=== PATIENT | female | born 1935 | race Caucasian/White ===

== ENCOUNTER 2016-07-26 23:39 | Emergency (ER) | payer MEDICARE, OTHER ==
[2013-02-16 14:52] VITALS: BMI 36.3
[~2016-07-26 23:39] MED LIST: ALBUTEROL; ATIVAN1 MG PO; CATAPRES0.1 MG PO; COUMADIN3 MG PO; FOLIC ACID1 MG PO; LEUCOVORIN CALCI5 MG PO; LEVAQUIN500 MG PO; LEVOTHROID50 MCG PO; MUCINEX600 MG PO; PRILOSEC20 MG PO; TEKTURNA300 MG PO; TYLENOL 325 MG325 MG PO; VICODIN 5/500 T1 TAB PO
== END 2016-07-27 02:55 | disposition home or self-care (01) ==
LOC: D.ER 23:39
DX: K08.89 Other specified disorders of teeth and supporting structures (principal); K02.9 Dental caries, unspecified; K04.7 Periapical abscess without sinus; C34.90 Malignant neoplasm of unspecified part of unspecified bronchus or lung; I48.91 Unspecified atrial fibrillation

== ENCOUNTER → 2017-01-11 10:43 | Outpatient (CLI) | payer MEDICARE, OTHER ==
[2013-02-16 14:52] VITALS: BMI 36.3
== END | disposition home or self-care (01) ==
LOC: D.CT 10:43
DX: C34.90 Malignant neoplasm of unspecified part of unspecified bronchus or lung (principal)

== ENCOUNTER 2017-03-06 21:46 | Observation (INO) | payer MEDICARE, OTHER ==
[~2017-03-06] VITALS: Ht 180.3 cm; Wt 126.8 kg
[2017-03-06 22:42] LABS: APTT 33.1 SECONDS (22.8-39.4); INR 1.54 (0.85-1.17); PROTIME 18.4 SECONDS (11.6-15.0)
[2017-03-06 22:49] LABS: BASOPHILS 0.8 % (0-2); HEMATOCRIT 35.8 % (36.0-48.0); HEMOGLOBIN 11.5 g/dL (12-16); IMMATURE GRANULOCYTES 0.2 % (0-5); LYMPHOCYTES 48.8 % (15-50); MCH 27.1 pg (26.0-34.0); MCHC 32.1 g/dL (31.0-37.0); MCV 84.4 fL (80.0-100.0); MEAN PLATELET VOLUME 9.7 fL (7.4-10.4); MONOCYTES 15.2 % (2-11); RBC 4.24 10x6/uL (4.00-5.40); RDW 15.8 % (11.5-14.5)
[2017-03-06 22:50] LABS: PLATELET COUNT 464 10x3/uL (130-400)
[2017-03-06 22:55] LABS: ALBUMIN 3.5 g/dL (3.4-5.0); ANION GAP 12.7 mmol/L (8-16); BILIRUBIN - TOTAL 0.6 mg/dL (0.2-1.3); CALCIUM 9.3 mg/dL (8.5-10.1); CARBON DIOXIDE 30.5 mmol/L (21.0-32.0); CREATININE - SERUM 1.8 mg/dL (0.6-1.3); POTASSIUM - SERUM 3.2 mmol/L (3.5-5.1)
[2017-03-07] VITALS (7 sets, daily range): BP systolic 132–182; BP diastolic 43–55; Ht 180.3 cm; Wt 126.8 kg
[2017-03-07] MEDS ORDERED: HYDROCODON-ACE1 EAC7 PO (00:17)
[2017-03-07] MEDS ORDERED: HYDROCHLOROTHIA50 MG PO (00:20)
[2017-03-07] MEDS ORDERED: VITAMIN D5000 UNIT PO (00:20)
[2017-03-07] MEDS ORDERED: LASIX20 MG PO (00:21)
[2017-03-07] MEDS ORDERED: KLOR-CON M2020 MEQ PO (00:21)
[2017-03-07] MEDS ORDERED: METOPROLOL TART50 MG PO (00:22)
[2017-03-07] MEDS ORDERED: COZAAR25 MG PO (00:22)
[2017-03-07] MEDS ORDERED: CATAPRES0.1 MG PO (00:23)
[2017-03-07] MEDS ORDERED: HCTZ25 MG PO (00:24)
[2017-03-07 08:55] LABS: BASOPHILS 0.9 % (0-2); EOSINOPHILS 2.3 % (0-7); HEMATOCRIT 33.3 % (36.0-48.0); HEMOGLOBIN 10.8 g/dL (12-16); LYMPHOCYTES 48.1 % (15-50); MCH 27.3 pg (26.0-34.0); MCHC 32.4 g/dL (31.0-37.0); MCV 84.1 fL (80.0-100.0); MEAN PLATELET VOLUME 8.6 fL (7.4-10.4); MONOCYTES 11.9 % (2-11); NEUTROPHILS 36.8 % (40-80); RBC 3.96 10x6/uL (4.00-5.40); RDW 15.6 % (11.5-14.5)
[2017-03-07 09:07] LABS: CALCIUM 8.9 mg/dL (8.5-10.1); CARBON DIOXIDE 30.7 mmol/L (21.0-32.0); CREATININE - SERUM 1.5 mg/dL (0.6-1.3)
[2017-03-07 09:09] LABS: ANION GAP 11.3 mmol/L (8-16)
[2017-03-07 09:30] LABS: PLATELET COUNT 360 10x3/uL (130-400); WBC 4.3 10x3/uL (4.8-10.8)
[2017-03-07 16:16] LABS: CHOL - HDL RATIO 3.9 ratio (2.3-4.1); HEMOGLOBIN A1C 6.5 % (4.8-6.0); LDL-HDL RATIO 2.6 ratio (1.5-3.5)
[2017-03-08 04:00] VITALS: BP 118/50
[2017-03-08 05:07] LABS: BASOPHILS 0.8 % (0-2); EOSINOPHILS 2.7 % (0-7); HEMATOCRIT 34.5 % (36.0-48.0); HEMOGLOBIN 11.1 g/dL (12-16); LYMPHOCYTES 42.4 % (15-50); MCH 27.3 pg (26.0-34.0); MCHC 32.2 g/dL (31.0-37.0); MEAN PLATELET VOLUME 9.7 fL (7.4-10.4); MONOCYTES 13.8 % (2-11); NEUTROPHILS 40.3 % (40-80); RBC 4.06 10x6/uL (4.00-5.40); RDW 15.8 % (11.5-14.5)
[2017-03-08 05:13] LABS: PLATELET COUNT 464 10x3/uL (130-400)
[2017-03-08 05:18] LABS: INR 1.65 (0.85-1.17); PROTIME 19.5 SECONDS (11.6-15.0)
[2017-03-08 05:29] LABS: ANION GAP 12.1 mmol/L (8-16); BILIRUBIN - TOTAL 0.45 mg/dL (0.2-1.3); CALCIUM 8.7 mg/dL (8.5-10.1); CARBON DIOXIDE 30.9 mmol/L (21.0-32.0); CREATININE - SERUM 1.6 mg/dL (0.6-1.3); PROTEIN - SERUM 6.5 g/dL (6.4-8.2)
[2017-03-08 07:00] VITALS: BP 175/51
[2017-03-08 12:53] VITALS: BP 152/56
[2017-03-08 16:56] VITALS: BP 149/55
[2017-03-08 19:00] VITALS: BP 189/75
[2017-03-09] VITALS: BP 155/59
[2017-03-09 04:00] VITALS: BP 167/63
[2017-03-09 09:00] VITALS: BP 141/60
[2017-03-09 13:27] VITALS: BP 185/62
[2017-03-09] MEDS ORDERED: ASPIRIN325 MG PO (14:10)
[2017-03-09] MEDS ORDERED: ROCEPHIN 1 GM/D51 G1 IV (14:13)
[2017-03-09] MEDS ORDERED: PRAVACHOL20 MG PO (16:37)
[2017-03-09 17:24] VITALS: BP 144/63
[2017-03-09 18:05] LABS: BASOPHILS 0.8 % (0-2); EOSINOPHILS 4.4 % (0-7); HEMATOCRIT 37.5 % (36.0-48.0); HEMOGLOBIN 11.9 g/dL (12-16); IMMATURE GRANULOCYTES 0.2 % (0-5); LYMPHOCYTES 42.5 % (15-50); MCH 27.4 pg (26.0-34.0); MCHC 31.7 g/dL (31.0-37.0); MCV 86.2 fL (80.0-100.0); MEAN PLATELET VOLUME 9.7 fL (7.4-10.4); NEUTROPHILS 40.1 % (40-80); RBC 4.35 10x6/uL (4.00-5.40); RDW 15.9 % (11.5-14.5); WBC 4.8 10x3/uL (4.8-10.8)
[2017-03-09 18:15] LABS: INR 1.51 (0.85-1.17); PROTIME 18.2 SECONDS (11.6-15.0)
[2017-03-09 18:17] LABS: PLATELET COUNT 318 10x3/uL (130-400)
[2017-03-09 18:19] LABS: ALBUMIN 3.2 g/dL (3.4-5.0); BILIRUBIN - TOTAL 0.25 mg/dL (0.2-1.3); CARBON DIOXIDE 31.8 mmol/L (21.0-32.0); CREATININE - SERUM 1.7 mg/dL (0.6-1.3); PROTEIN - SERUM 6.9 g/dL (6.4-8.2)
[2017-03-09 18:20] LABS: POTASSIUM - SERUM 3.8 mmol/L (3.5-5.1)
== END 2017-03-09 18:26 ==
LOC: D.ER 21:46 → D.M2 23:16 → OBSVTIME 23:45 → D.M2 03-09 18:26
PROVIDERS: Emergency Medicine; ADMIT Family Medicine
DX: I63.512 Cerebral infarction due to unspecified occlusion or stenosis of left middle cerebral artery (principal); I65.22 Occlusion and stenosis of left carotid artery; E11.9 Type 2 diabetes mellitus without complications; I10 Essential (primary) hypertension; I25.10 Atherosclerotic heart disease of native coronary artery without angina pectoris; Z95.0 Presence of cardiac pacemaker; I48.2 Chronic atrial fibrillation; Z79.01 Long term (current) use of anticoagulants; R47.02 Dysphasia; K21.9 Gastro-esophageal reflux disease without esophagitis; Z86.73 Personal history of transient ischemic attack (TIA), and cerebral infarction without residual deficits; Z87.891 Personal history of nicotine dependence; L03.119 Cellulitis of unspecified part of limb; N17.9 Acute kidney failure, unspecified

== ENCOUNTER 2017-03-09 18:40 | Inpatient (IN) | payer MEDICARE, OTHER ==
[~2017-03-09] VITALS: Ht 180.3 cm; Wt 122.5 kg
[~2017-03-09 18:40] MED LIST changes: +ASPIRIN325 MG PO; +COZAAR25 MG PO; +HCTZ25 MG PO; +HYDROCHLOROTHIA50 MG PO; +HYDROCODON-ACE1 EAC7 PO; +KLOR-CON M2020 MEQ PO; +LASIX20 MG PO; +METOPROLOL TART50 MG PO; +PRAVACHOL20 MG PO; +ROCEPHIN 1 GM/D51 G1 IV; +VITAMIN D5000 UNIT PO
[2017-03-09 19:00] VITALS: BP 142/63
--- NOTE | 2017-03-09 19:30 | NUR ---
PT IN BED WITH HOB UP FOR COMFORT. ORIENTED PT TO ROOM AND HOW TO USE CALL LIGHT. O2 @ 2L VIA N/C. LEFT FA SALINE LOC. BED IN LOWEST POSIITON AND CALL LIGHT WITHIN REACH.
--- NOTE | 2017-03-09 20:30 | NUR ---
LEFT FA SLAINE LOC FLUSHES EASILY.
--- NOTE | 2017-03-10 | NUR ---
RN TO DO ASSESSMENT.
[2017-03-10 00:40] VITALS: BMI 37.7
--- NOTE | 2017-03-10 00:58 | NUR ---
ADMISSION ASSESSMENT COMPLETE. PRIMARY NURSE TO COLLECT HER ADMISSION HISTORY PRESENTLY.
--- NOTE | 2017-03-10 04:39 | NUR ---
PT LYING IN BED. EYES CLOSED. CHEST RISING AND FALLING. BED IN LOWEST POSITION AND CALL LIGHT WITHIN REACH.
--- NOTE | 2017-03-10 05:17 | NUR ---
ASSISTED PT TO BATHROOM AND BACK TO BED.
--- NOTE | 2017-03-10 07:09 | NUR ---
RESTING QUIETLY IN BED. NO S/S DISTRESS. CALL LIGHT IN REACH
--- NOTE | 2017-03-10 07:50 | NUR ---
IN THERAPY GYM WITH PHYSICAL THERAPIST ORAL. NO S/SX OF DISTRESS. OFFERS NO COMPLAINTS. ALERT AND ORIENTED
[2017-03-10 08:00] VITALS: BP 153/67
[2017-03-10 08:06] LABS: BASOPHILS 0.9 % (0-2); EOSINOPHILS 4.2 % (0-7); HEMATOCRIT 36.1 % (36.0-48.0); HEMOGLOBIN 11.6 g/dL (12-16); IMMATURE GRANULOCYTES 0.2 % (0-5); MCH 27.6 pg (26.0-34.0); MCHC 32.1 g/dL (31.0-37.0); MEAN PLATELET VOLUME 9.7 fL (7.4-10.4); MONOCYTES 10.5 % (2-11); NEUTROPHILS 35.2 % (40-80); RDW 15.9 % (11.5-14.5); WBC 5.7 10x3/uL (4.8-10.8)
[2017-03-10 08:07] LABS: PLATELET COUNT 469 10x3/uL (130-400)
[2017-03-10 08:16] LABS: CARBON DIOXIDE 32.3 mmol/L (21.0-32.0); CREATININE - SERUM 1.6 mg/dL (0.6-1.3); POTASSIUM - SERUM 3.3 mmol/L (3.5-5.1)
--- NOTE | 2017-03-10 09:59 | NUR ---
LYING IN BED ON RIGHT SIDE HOB 45 DEGRESS. ADMINISTERED MORNING MEDS WITHOUT DIFFICULTY. OFFERS NO CONCERNS AND DENIES PAIN. CALL LIGHT WITHIN REACH. WILL CONTINUE TO MONITOR
--- NOTE | 2017-03-10 15:01 | NUR ---
SITTING UP IN WHEELCHAIR VISITING FAMILY. OFFERS NO COMPLAINTS. CALL LIGHT WITHIN REACH. WILL CONTINUE TO MONITOR
--- NOTE | 2017-03-10 18:46 | NUR ---
ASSISTED TO RESTROOM AND ASSISTED TO BED WITH MIN ASSIST. OFFERS NO COMPLAINTS. CALL LIGHT IN REACH
--- NOTE | 2017-03-10 19:30 | NUR ---
PT IS RESTING IN BED WITH EYES CLOSED. RESPS ARE EVEN AND UNLABORED. NO ACUTE DISTRESS NOTED. ALERT AND ORIENTED X 3. DENIES ANY DISCOMFORT. O2 IS ON @ 2LPM PER NC. SR'S ARE UP X 3 IN BED. CALL LIGHT AND BEDSIDE TABLE ARE WITHIN EASY REACH.
[2017-03-10 20:00] VITALS: BP 141/72
--- NOTE | 2017-03-10 20:01 | NUR ---
PT. IN BED LYING ON HER LEFT SIDE WITH EYES CLOSED AND RESP. EVEN. CALL LIGHT WITHIN REACH.
--- NOTE | 2017-03-10 22:14 | NUR ---
PT IS RESTING IN BED WATCHING TV. NO NEEDS VOICED.
--- NOTE | 2017-03-11 00:27 | NUR ---
RESTING IN BED WITH EYES CLOSED.
--- NOTE | 2017-03-11 03:34 | NUR ---
RESTING IN BED WITH EYES CLOSED.
--- NOTE | 2017-03-11 07:50 | NUR ---
ASSISTED FROM BED TO WHEELCHAIR FOR BREAKFAST WITH MIN ASSIST. NO S/SX OF DISTRESS. ALERT AND ORIENTED X4. OFFERS NO COMPLAINTS AND DENIES PAIN. CALL LIGHT WITHIN REACH. WILL CONTINUE TO MONITOR
[2017-03-11 08:00] VITALS: BP 132/72
--- NOTE | 2017-03-11 09:28 | NUR ---
SITTING UP ON SIDE OF BED READING NEWSPAPER. ADMINISTERED MORNING MEDS WITHOUT DIFFICULTY. OFFERS NO COMPLAINTS. CALL LIGHT WITHIN REACH. WILL CONTINUE TO MONITOR
--- NOTE | 2017-03-11 11:31 | NUR ---
LYING IN BED ON RIGHT SIDE EASILY AROUSED WITH STIMULI. CALL LIGHT WITHIN REACH. CONTINUES ON O2 AT 2L VIA NC. WILL CONTINUE TO MONITOR
--- NOTE | 2017-03-11 14:26 | NUR ---
LYING IN BED ON RIGHT SIDE RESTING COMFORTABLY. OFFERS NO COMPLAINTS DENIES PAIN. CALL LIGHT WITHIN REACH. WILL CONTINUE TO MONITOR
--- NOTE | 2017-03-11 17:40 | NUR ---
SITTING UP IN WHEELCHAIR EATING DINNER. DAUGHTER AT BEDSIDE. OFFERS NO COMPLAINTS. CALL LIGHT WITHIN REACH. WILL CONTINUE TO MONITOR
--- NOTE | 2017-03-11 18:12 | NUR ---
PT RESTING ,DENIES NEEDS. WCTM.
[2017-03-11 19:28] VITALS: BP 131/74
--- NOTE | 2017-03-11 19:41 | NUR ---
PT. IN BED WITH HOB UP FOR COMFORT AND IS GETTING READY FOR BED. PT'S DAUGHTER IS PRESENT AND IS HELPING Alan CHENEY LPN WITH PT. NO VOICED NEEDS AND HER CALL LIGHT IS WITHIN REACH.
--- NOTE | 2017-03-11 19:42 | NUR ---
PT IS RESTING IN A WC IN HER ROOM. ALERT AND ORIENTED X 3. STATES: "IM JUST WAITING ON MY DAUGHTER. SHE SAID SHE WOULD BE BACK IN A WHILE." VSS. O2 IS ON @ 2LPM PER NC. NO SOB NOTED. LEFT WRIST SALINE LOCK NOTED. NO REDNESS OR EDEMA NOTED AT THE INSERTION SITE. SR'S ARE UP X 3 IN BED. CALL LIGHT AND BEDSIDE TABLE ARE WITHIN EASY REACH.
--- NOTE | 2017-03-11 21:36 | NUR ---
PT ASSISTED TO THE BATHROOM WITH SBA.
--- NOTE | 2017-03-12 00:01 | NUR ---
RESTING IN BED WITH EYES CLOSED.
--- NOTE | 2017-03-12 03:30 | NUR ---
RESTING IN BED WITH EYES CLOSED.
[2017-03-12 07:07] LABS: BASOPHILS 0.5 % (0-2); EOSINOPHILS 5.7 % (0-7); HEMATOCRIT 30.9 % (36.0-48.0); HEMOGLOBIN 10.1 g/dL (12-16); IMMATURE GRANULOCYTES 0.2 % (0-5); LYMPHOCYTES 36.9 % (15-50); MCH 27.9 pg (26.0-34.0); MCHC 32.7 g/dL (31.0-37.0); MCV 85.4 fL (80.0-100.0); MEAN PLATELET VOLUME 10.1 fL (7.4-10.4); MONOCYTES 15.4 % (2-11); NEUTROPHILS 41.3 % (40-80); PLATELET COUNT 466 10x3/uL (130-400); RBC 3.62 10x6/uL (4.00-5.40)
[2017-03-12 07:14] LABS: INR 2.04 (0.85-1.17); PROTIME 23.1 SECONDS (11.6-15.0)
[2017-03-12 07:29] LABS: ANION GAP 10.2 mmol/L (8-16); CALCIUM 9.1 mg/dL (8.5-10.1); CREATININE - SERUM 1.6 mg/dL (0.6-1.3); POTASSIUM - SERUM 3.2 mmol/L (3.5-5.1); THYROID STIMULATING HORMONE 1.11 uIU/mL (0.36-3.74)
[2017-03-12 08:00] VITALS: BP 169/58
--- NOTE | 2017-03-12 08:07 | NUR ---
PT RESTING IN BED WITH EYES OPEN CALL LIGHT IN REACH NO PROBLEMS WILL MONITER
--- NOTE | 2017-03-12 10:34 | NUR ---
PATIENT ADMITTED TO REHAB FROM ACUTE FLOOR. DR. AKBAR IS PCP, [facility] IS PH[facility]ACY OF CHOICE.. DME AT HOME: BEDSIDE COMMODE, O2 AMD WALKER. HER MICA SPLITTER WILL ASSIT AT DISCHARGE: [facility] [phone], OR [phone]. WILL CONTINUE TO FOLLOW WITH PATIENT
--- NOTE | 2017-03-12 19:30 | NUR ---
PM ROUNDS MADE, PT VISITING WITH FAMILY, WILL COME BACK TO DO ASSESSMENT
--- NOTE | 2017-03-12 20:10 | NUR ---
PT TRANSFERRED TO BED PER THIS RN AND TANVI, DIRECTOR DATA MANAGEMENT, VS OBTAINED PER DIRECTOR DATA MANAGEMENT, ASSESSMENT PER FLOW SHEET, SALINE LOCK IN RIGHT FA INTACT WITH NO REDNESS OR EDEMA, 02 PLACED AT 2L PER MD ORDERS, PT REPORTS FLATUS, DENIES BM TODAY, PT INST ON AND VERBALIZES UNDERSTANDING TO USE CALL LIGHT WHEN NEEDING TO USE THE BR, PT RATES NECK PAIN 12/09, INFORMED PT THAT I WILL CHECK TO SEE IF PAIN MED IS DUE, PT VERBALIZES UNDERSTANDING, BED IN LOW POSITION, SIDE RAILS X 2, CALL LIGHT IN REACH, BED ALARM ON AND WORKING PROPERLY
--- NOTE | 2017-03-12 21:44 | NUR ---
PT AWAKE, ADM 2100 MEDS AND PAIN MED PER MD ORDERS, SEE EMAR, PT DENIES FURTHER NEEDS
[2017-03-12 21:45] VITALS: BP 176/73
--- NOTE | 2017-03-12 22:30 | NUR ---
PT RESTING WITH EYES CLOSED, RESP QUIET, NO DISTRESS NOTED, LEFT UNDISTURBED AT THIS TIME
--- NOTE | 2017-03-13 00:30 | NUR ---
PT RESTING WITH EYES CLOSED, RESP QUIET, NO DISTRESS NOTED, LEFT UNDISTURBED AT THIS TIME
--- NOTE | 2017-03-13 02:15 | NUR ---
PT RESTING WITH EYES CLOSED, RESP QUIET, NO DISTRESS NOTED, LEFT UNDISTURBED AT THIS TIME, BED IN LOW POSITION, SIDE RAILS X 2, CALL LIGHT IN REACH, BED ALARM ON AND WORKING PROPERLY
--- NOTE | 2017-03-13 04:34 | NUR ---
PT JUNIOR WEB DEVELOPER LIGHT, PT REPORTS BEING WET, PT IS NOT WET, BUT PT IS SLIGHTLY ARGUMENTATIVE, PT CHANGED INTO AN ADULT BRIEF, PINK PAD CHANGED BECAUSE PT C/O IT BEING BUNCHED UP UNDERNEATH HER, PT C/O PAIN, ADM [place] PO PER MD ORDERS, SEE EMAR, PT DENIES FURTHER NEEDS, PT STATES "I'M SORRY I SEEM AGGREVATED", REASSURED PT THAT WAS OK, BED IN LOW POSITION, SIDE RAILS X 2, CALL LIGHT IN REACH, BED ALARM ON AND WORKING PROPERLY
--- NOTE | 2017-03-13 06:23 | NUR ---
PT RESTING WITH EYES CLOSED, AROUSES TO SOFT VERBAL STIMULATION, ADM 0600 MEDS AND FLUSHED SALINE LOCK PER MD ORDERS, SEE EMAR, PT DENIES NEEDS OR PAIN AT THIS TIME, BED IN LOW POSITION, SIDE RAILS X 2, CALL LIGHT IN REACH, BED ALARM ON AND WORKING PROPERLY
--- NOTE | 2017-03-13 06:43 | NUR ---
SHIFT REPORT TO DAY SHIFT
--- NOTE | 2017-03-13 08:26 | NUR ---
PT UP IN WHEELCHAIR EATING BREAKFAST CALL LIGHT IN REACH NO PROBLEMS WILL MONITER
[2017-03-13 08:32] VITALS: BP 129/48
--- NOTE | 2017-03-13 18:00 | NUR ---
PT RESTING IN BED WITH EYES OPEN CALL LIGHT IN REACH NO PROBLEMS WILL MONITER
--- NOTE | 2017-03-13 18:05 | NUR ---
PT RESTING IN BED WITH EYES OPEN CALL LIGHT IN REACH NO PROBLEMS WILL MONITER
--- NOTE | 2017-03-13 19:25 | NUR ---
DAUGHTER TALKS TO PT AT BEDSIDE.
[2017-03-13 20:04] VITALS: BP 177/67
--- NOTE | 2017-03-14 03:20 | NUR ---
IN BED, RESTING QUIETLY, HOB UP 30 DEGREES.
--- NOTE | 2017-03-14 04:44 | NUR ---
REST QUIETLY IN BED, CALL LIGHT IN REACH.
[2017-03-14 06:35] LABS: BASOPHILS 0.9 % (0-2); HEMATOCRIT 32.1 % (36.0-48.0); HEMOGLOBIN 10.1 g/dL (12-16); LYMPHOCYTES 37.4 % (15-50); MCH 26.7 pg (26.0-34.0); MCHC 31.5 g/dL (31.0-37.0); MCV 84.9 fL (80.0-100.0); MEAN PLATELET VOLUME 10.5 fL (7.4-10.4); MONOCYTES 14.4 % (2-11); NEUTROPHILS 41.3 % (40-80); PLATELET COUNT 499 10x3/uL (130-400); RBC 3.78 10x6/uL (4.00-5.40); RDW 15.7 % (11.5-14.5); WBC 6.6 10x3/uL (4.8-10.8)
[2017-03-14 06:52] LABS: ANION GAP 11.9 mmol/L (8-16); CALCIUM 9.4 mg/dL (8.5-10.1); CARBON DIOXIDE 29.8 mmol/L (21.0-32.0); CREATININE - SERUM 1.6 mg/dL (0.6-1.3)
[2017-03-14 06:59] LABS: POTASSIUM - SERUM 3.7 mmol/L (3.5-5.1)
[2017-03-14 08:53] VITALS: BP 139/46
--- NOTE | 2017-03-14 08:53 | NUR ---
PATIENT IN REHAB ROOM. WORKING WITH PHYSICAL THERAPIST. DENIES ANY PAIN/DISC AT THIS TIME. PATIENT IS ALERT/ORIENT X4
--- NOTE | 2017-03-14 10:28 | NUR ---
PATIENT HLEPED INTO BATHROOM. STAND BY ASST WITH WHEELED WALKER. UNSTEADY GAIT WITHOUT WALKER.
--- NOTE | 2017-03-14 12:41 | NUR ---
PATIENT STATES THAT HER SALINE LOCK IN LEFT FOREARM IS HURTING HER. THIS NURSE CHECKED SALINE LOCK. FLUSHED WITHOUT DIFFICULTY. PATIENT STATES SHE DID NOT HAVE ANY PAIN/DISC WITH FLUSH. NO S/S OF INFILTRATION.
--- NOTE | 2017-03-14 19:16 | NUR ---
PATIENT SITTING UP BY THE SIDE OF THE BED. CALL LIGHT WITHIN REACH
--- NOTE | 2017-03-14 19:30 | NUR ---
PT UP IN W/C. WATCHING TV. 02 @ 2L VIA N/C. LEFT FA SALINE LOC. ALERT & ORIENTED. CALL LIGHT WITHIN REACH.
--- NOTE | 2017-03-14 20:00 | NUR ---
PT IN BED WITH HOB UP FOR COMFORT. WATCHING TV. O2 @ 2L VIA N/C. LEFT FA SALINE LOC. STANDY BY ASSSIT. PACEMAKER. BED IN LOWEST POSITION AND CALL LIGHT WITHIN REACH.
--- NOTE | 2017-03-14 20:44 | NUR ---
PT. IN BED WITH HOB UP FOR COMFORT W/EYES CLOSED AND RESP. EVEN. CALL LIGHT WITHIN REACH.
[2017-03-14 22:24] VITALS: BP 156/51
--- NOTE | 2017-03-15 | NUR ---
PT LYING IN BED. EYES CLOSED. CHEST RISING AND FALLING. BED IN LOWEST POSITION AND CALLL LIGHT WITHIN REACH.
--- NOTE | 2017-03-15 01:51 | NUR ---
PT IN BED RESTING EVEN AND UNLABORED RESPIRATIONS NOTED WILL CONTINUE TO MONITOR
--- NOTE | 2017-03-15 05:45 | NUR ---
PT LYING IN BED. EYES CLOSED. RESP. EVEN. BED IN LOWEST POSITION AND CALL LIGHT WITHIN REACH.
--- NOTE | 2017-03-15 08:45 | NUR ---
PT RESTING IN BED WITH EYES OPEN CALL LIGHT IN REACH NO PROBLEMS WILL MONITER
[2017-03-15 10:45] VITALS: Ht 180.3 cm; Wt 122.5 kg
--- NOTE | 2017-03-15 12:24 | NUR ---
EATING LUNCH. DENIES NEEDS OR C/O.
--- NOTE | 2017-03-15 19:30 | NUR ---
PT UP IN W/C. WATCHING TV. 02 @ 2L VIA N/C. LEFT FA SALINE LOC. ALERT & ORIENTED. CALL LIGHT WITHIN REACH.
[2017-03-15 19:58] VITALS: BP 128/55
--- NOTE | 2017-03-15 20:29 | NUR ---
PT LEFT FA D/C WITH CATH TIP INTACT. PT TOLERATED PROCEDURE WELL.
--- NOTE | 2017-03-15 23:30 | NUR ---
PT LYING IN BED. EYES CLOSED. CHES RISING AND FALLING. BED IN LOWEST POSITION AND CALL LIGHT WITHIN REACH.
--- NOTE | 2017-03-16 03:30 | NUR ---
PT IN BED WITH HOB UP FOR COMFORT. EYES CLOSED. RESPIRATIONS EVEN AND UNLABORED. BED IN LOWEST POSITION AND CALL LIGHT WITHIN REACH.
--- NOTE | 2017-03-16 04:55 | NUR ---
RESTING IN BED WITH EYES CLOSED. NO S/S OF DISTRESS OBSERVED. HOB ELEVATED TO 30 DEGREES. PACEMAKER TO RIGHT CHEST. O2 @ 2L PER N/C IN PLACE. RESP. EVEN AND UNLABORED. CALL LIGHT AND OVERBED TABLE IN REACH.
[2017-03-16 05:19] LABS: INR 2.67 (0.85-1.17); PROTIME 28.6 SECONDS (11.6-15.0)
[2017-03-16 09:03] VITALS: BP 134/66
--- NOTE | 2017-03-16 18:04 | NUR ---
PT RESTING IN BED WITH EYES OPEN CALL LIGHT IN REACH NO PROBLEMS WILL MONITER
--- NOTE | 2017-03-16 19:30 | NUR ---
ASSISTED PT TO BATHROOM AND BADK TO BED.
--- NOTE | 2017-03-16 21:50 | NUR ---
PT REFUSED TO USE NASAL CANNULA TUBE FOR OXYGEN, STATE THE TUBE HURT HER NOSE CAUSE BLEEDING.
--- NOTE | 2017-03-16 22:25 | NUR ---
CHECK PT SPO2 IS 93%, INSTRUCT PT PUT BACK ON NASAL CANNULAR TUBING, PT AGREE TO PUT IT BACK ON NOSE, EVEN FEEL A LITTLE BIT OF UNCOMFABLE TO WEAR IT.
[2017-03-16 23:08] VITALS: BP 118/58
--- NOTE | 2017-03-17 02:50 | NUR ---
FOUND PATIENT'S BED ELEVATED QUITE HIGH. LOWERED THE BED TO ITS LOWEST SETTING. PATIENT AWOKE AND WAS A BIT CONFUSED AT FIRST. INFORMED HER I AM TH HOMA NURSE, ON ROUNDS AND THAT I LOWERED HER BED FOR SAFETY REASONS. THIS SEEMED TO SATISFY HER.
--- NOTE | 2017-03-17 03:10 | NUR ---
REST IN BED, EYE CLOSE, CALL LIGHT IN REACH.
--- NOTE | 2017-03-17 07:32 | NUR ---
LYING IN BED RESTING COMFORTABLY. AROUSES WITH STIMULI. OFFERS NO COMPLAINTS. AND DENIES PAIN. CALL LIGHT WITHIN REACH. BED LOW. WILL CONTINUE TO MONITOR
[2017-03-17 08:00] VITALS: BP 105/44
--- NOTE | 2017-03-17 10:51 | NUR ---
SITTING UP IN WHEELCHAIR WATCHING TV. OFFERS NO COMPLAINTS. CALL LIGHT WITHIN REACH. WILL CONTINUE TO MONITOR
--- NOTE | 2017-03-17 14:08 | NUR ---
SITTING UP IN WHEELCHAIR WATCHING TV. OFFERS NO COMPLAINTS. CALL LIGHT WITHIN REACH. WILL CONTINUE TO MONITOR
--- NOTE | 2017-03-17 17:18 | NUR ---
SITTING UP IN WHEELCHAIR EATING DINNER. FAMILY AT BEDSIDE. CALL LIGHT WITHIN REACH. WILL CONTINUE TO MONITOR
--- NOTE | 2017-03-17 17:32 | NUR ---
EATING SUPPER IN ROOM. DENIES NEEDS. CALL LIGHT IN REACH
--- NOTE | 2017-03-17 19:30 | NUR ---
ASSISTED PT TO BATHROOM AND BACK TO BED.
[2017-03-17 22:15] VITALS: BP 163/58
--- NOTE | 2017-03-18 01:10 | NUR ---
IN BED, EYES CLOSED. RESTING QUIETLY.
--- NOTE | 2017-03-18 04:20 | NUR ---
PT REST QUIETLY IN BED, EYE CLOSE, CALL LIGHT IN REACH.
--- NOTE | 2017-03-18 08:04 | NUR ---
GOT UP AND GOT DRESSED WITH ASST FROM NURSE. DENIES PAIN. SPEECH IS SLOW BUT CLEAR. HAS DIFFICULTY LIFTING BLE ONTO BED FROM FLOOR WHEN TRYING TO LAY DOWN. EACH LOWER LEG IS SWOLLEN, RED, AND HAS CELLULITIS BLISTERS TO ANTERIOR PORTION OF GALVEZ. SHE USES A WALKER.
--- NOTE | 2017-03-18 12:07 | NUR ---
RESTING QUIETLY IN BED. HAS BEEN SLEEPING MOST OF MORNING.
[2017-03-18 12:10] VITALS: BP 128/42
--- NOTE | 2017-03-18 18:21 | NUR ---
RESTING QUIETLY IN BED. DENIES NEEDS. CALL LIGHT IN REACH
--- NOTE | 2017-03-18 19:30 | NUR ---
PT IS RESTING IN BED WITH EYES OPEN. ALERT AND ORIENTED X 3. DENIES ANY DISCOMFORT AT THIS TIME. VSS. PT REFUSED A SHOWER AT THIS TIME, STATING, "I ALWAYS TAKE MY BATH DURING THE DAY WHEN IT IS WARM, AND I DONE SEE ANY REASON TO STOP DOING THAT NOW."O2 IS ON @ 2LPM PER NC. SR'S ARE UP X 2 IN BED. CALL LIGHT AND BEDSIDE TABLE ARE WITHIN EASY REACH.
[2017-03-18 20:00] VITALS: BP 133/57
--- NOTE | 2017-03-18 20:49 | NUR ---
PT IS RESTING IN BED WATCHING TV. NO NEEDS VOICED.
--- NOTE | 2017-03-18 23:18 | NUR ---
PT RESTING IN BED WITH EYES CLOSED.
--- NOTE | 2017-03-19 01:40 | NUR ---
RESTING IN BED, EYES CLOSED HOB UP 20 DEGREES. RESPIRING QUIETLY.
--- NOTE | 2017-03-19 02:49 | NUR ---
RESTING IN BED WITH EYES CLOSED.
[2017-03-19 05:43] LABS: BASOPHILS 1.5 % (0-2); EOSINOPHILS 5.2 % (0-7); HEMATOCRIT 29.4 % (36.0-48.0); HEMOGLOBIN 9.2 g/dL (12-16); LYMPHOCYTES 44.3 % (15-50); MCH 26.9 pg (26.0-34.0); MCHC 31.3 g/dL (31.0-37.0); MEAN PLATELET VOLUME 10.7 fL (7.4-10.4); MONOCYTES 15.4 % (2-11); NEUTROPHILS 33.6 % (40-80); PLATELET COUNT 498 10x3/uL (130-400); RBC 3.42 10x6/uL (4.00-5.40); RDW 15.9 % (11.5-14.5); WBC 5.4 10x3/uL (4.8-10.8)
[2017-03-19 05:56] LABS: CREATININE - SERUM 1.9 mg/dL (0.6-1.3)
--- NOTE | 2017-03-19 06:03 | NUR ---
PT ASSISTED TO THE BATHROOM WITH SBA. NO FURTHER NEEDS VOICED.
--- NOTE | 2017-03-19 08:00 | NUR ---
PATIENT IS ALERT/ORIENT X4. SITTING UP AT THE SIDE OF THE BED TO EAT BREAKFAST. VOICES NO NEEDS AT THIS TIME.
[2017-03-19 08:25] VITALS: BP 117/46
--- NOTE | 2017-03-19 09:52 | NUR ---
PATIENT IN REHAB ROOM. WORKING WITH PHYSICAL THERAPIST. DENIES ANY PAIN/DISC AT THIS TIME.
--- NOTE | 2017-03-19 12:20 | NUR ---
PATIENT HAS SIGNED RELEASE OF RESPONSIBILTIY FOR BED/CHAIR WAVIOR ALARM
--- NOTE | 2017-03-19 17:30 | NUR ---
PATIENT WALKING AROUND ROOM BY SELF WITH WHEELED WALKER. STEAD GAIT WITH WHEELED WALKER.
--- NOTE | 2017-03-19 20:00 | NUR ---
PT IN WC. TALKING ON THE PHONE. ALERT & ORIENTED. O2 @ 2L, REFUSING TO WEAR. NO IV. CALL LIGHT WITHIN REACH.
[2017-03-19 20:41] VITALS: BP 170/56
--- NOTE | 2017-03-20 | NUR ---
PT IN BED WITH HOB UP FOR COMFORT. EYES CLOSED. CHEST RISING AND FALLING. BED IN LOWEST POSITION AND CALL LIGHT WITHIN REACH.
--- NOTE | 2017-03-20 04:00 | NUR ---
PT IN BED WITH HOB UP FOR COMFORT. EYES CLOSED. RESP. EVEN. BED IN LOWEST POSITION AND CALL LIGHT WITHIN REACH.
[2017-03-20 07:55] LABS: INR 3.46 (0.85-1.17); PROTIME 35.2 SECONDS (11.6-15.0)
--- NOTE | 2017-03-20 08:00 | NUR ---
PT AM MEDS ADMINSITERED
--- NOTE | 2017-03-20 08:00 | NUR ---
PT AM MEDS ADMINSITERED. PT DENEIS NEEDS AT THIS TIME. BED LOW. CLI N REACH
[2017-03-20 08:06] VITALS: BP 146/49
--- NOTE | 2017-03-20 11:29 | NUR ---
Nutrition Follow Up: Pt is eating 83% meal avg on a regular diet. +BM 03/19/17. Labs reviewed. Meds noted including Lasix. Rec continue current diet. RD following.
--- NOTE | 2017-03-20 12:30 | NUR ---
PT EATING LUNCH, DENIES NEEDS. WCTM.
--- NOTE | 2017-03-20 18:07 | HP ---
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 She lives with her daughter and she is usually moderately independent with ADLs and mobility using a rolling walker. PAST MEDICAL HISTORY: Diabetes, hypertension, coronary artery disease, pacemaker placement and AFib. She takes Coumadin daily for atrial fibrillation. She forgot to take her Coumadin for 3-5 days last week secondary to moving from [place] to [place]. She was admitted to the hospital on March 06. She presented with slow mentation, expressive aphasia, fatigue and weakness. CT showed no acute intracranial findings. A neurology consult was ordered and examined by neuro. She had difficulty recalling words, divergent and convergent tasks were impaired. Problem solving and safety awareness were poor and she demonstrated deficits with higher cognitive function. Dr. 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 Her INR was 1.5. She has chronic lower extremity edema. On admission, she had bilateral lower extremity cellulitis and 2+ edema with blisters bilaterally. Currently, she is moderate to max assist for ADLs and mobility secondary to weakness, lower extremity edema and pain. 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 She wants to return home with her daughter and had her prior level of functioning if she can. COMORBIDITIES: In this patient include fatigue, weakness, dizziness, hepatitis B, O2 dependence, anxiety, acute kidney injury, AFib, diabetes, TIA, symbolic dysfunction and expressive aphasia. PAST MEDICAL HISTORY: Significant for diabetes, hypertension and coronary artery disease. She has had a history of cardiac dysrhythmia, atrial fib, acid reflux and anxiety. PAST SURGICAL HISTORY: Includes gallbladder surgery, tonsillectomy, adenoidectomy, hysterectomy, pacemaker placement, splenectomy and thyroidectomy. ALLERGIES: PENICILLIN AND CLINDAMYCIN. CURRENT MEDICATIONS: Include Synthroid 50 mcg daily. She is on warfarin 3 mg daily, Pravachol 20 mg daily, potassium 20 mEq daily, Protonix 40 mg daily, metoprolol 50 mg daily, Rocephin 1 gram q.24 hours, she is on aspirin 325 mg daily, losartan 25 mg daily, Ativan 1 mg b.i.d. p.r.n. anxiety, Osborne 5/325 as needed for pain, furosemide 20 mg daily, Catapres 0.1 mg q.8 hours p.r.n. elevated systolic blood pressure greater than 170 and polyethylene glycol 17 grams in 8 ounces of water daily. HISTORY AND PHYSICAL [id number] DAMIAN POWELL HABITS: No alcohol or tobacco use. FAMILY HISTORY: Noncontributory. SOCIAL HISTORY: The patient once again hopes to return home with her daughter. REVIEW OF SYSTEMS: GENERAL: She does complain of weakness and fatigue especially on one side. HEENT: She denies cold, cough, or congestion. CARDIOVASCULAR: She denies chest pain. PHYSICAL EXAMINATION: VITAL SIGNS: Stable, afebrile. GENERAL: Elderly female who is somewhat obese. HEENT: Normocephalic and atraumatic. Mucosa moist. NECK: Supple. No lymphadenopathy. LUNGS: Clear in upper mcintyre. HEART: Regular rate and rhythm. ABDOMEN: Benign. EXTREMITIES: No clubbing or cyanosis. She does have some peripheral edema, and a little bit of erythema noted. NEUROLOGIC: She is consistent with right body involvement of a possible left middle cerebral artery infarction. LABORATORY DATA: White count is 5.7, H&H of 12 and 36, and platelet count was noted to be 469. Sodium 139, potassium 3.3, BUN and creatinine of 21 and 1.6 and blood sugar is noted to be 96. ASSESSMENT: This is an 81-year-old female patient admitted to rehab with a working diagnosis of left middle cerebral artery infarction involving the right side of her body. The patient has potential to make improvement. We instituted the following multidisciplinary therapies including to, but not limited to physical, occupational, respiratory, speech, nutritional services, prosthetics and orthotics. Given her complex condition and risk for more complications, rehabilitation services cannot be provided at a lower level of care such as a fdc facility. PLAN: 1. Admit to [facility] rehab for intensive inpatient therapy to include the following disciplines: A. Physical therapy to improve gait, all transfer skills and bed mobility to a modified independent level. B. Occupational therapy to improve activities of daily living to a modified independent level. C. Case management to assist with discharge planning and placement options. D. Nutrition to assist with nutritional needs. E. Rehabilitation nursing to assist in monitoring the patient's underlying medical conditions and to assist with any type of bowel or bladder management. 2. The patient's current medication and medical care will be continued. 3. The patient will be placed on standard fall precautions. 4. We will manage her INR closely. 5. Discuss this patient during care team staff meeting this week. TRANSINT:[id number] Voice Confirmation ID: [id number] DOCUMENT ID: [id number] HISTORY AND PHYSICAL [id number] DAMIAN POWELL SCOTT MD at 1807 CC: [id number] DICTATION DATE: 03/10/17 1043 LEGAL RECRUITER: 03/10/17 1626 ADM IN [place] [id number] [place] [address]
--- NOTE | 2017-03-20 18:58 | NUR ---
PT SITTING UP IN WC, DENIES NEEDS. FAMILY AT BEDSIDE. WCTM.
[2017-03-20 20:19] VITALS: BP 133/49
--- NOTE | 2017-03-20 20:19 | NUR ---
RECIEVED SITTING ON SIDE OF BED WITH DAUGHTER AT BEDSIDE. DENIES ANY PAIN AT THIS TIME. DOES STATE HER NECK HURTS WHEN SHE LAYS DOWN. EXPLAINED TO USE XALL LIGHT FOR MEDICATION. VERBAL UNDERSTANDING GIVEN.
[2017-03-21 05:51] LABS: BASOPHILS 1.1 % (0-2); EOSINOPHILS 3.2 % (0-7); HEMATOCRIT 30.8 % (36.0-48.0); HEMOGLOBIN 9.8 g/dL (12-16); IMMATURE GRANULOCYTES 0.2 % (0-5); LYMPHOCYTES 49.4 % (15-50); MCH 26.8 pg (26.0-34.0); MCHC 31.8 g/dL (31.0-37.0); MCV 84.2 fL (80.0-100.0); MEAN PLATELET VOLUME 10.6 fL (7.4-10.4); MONOCYTES 12.9 % (2-11); NEUTROPHILS 33.2 % (40-80); PLATELET COUNT 541 10x3/uL (130-400); RBC 3.66 10x6/uL (4.00-5.40); RDW 15.7 % (11.5-14.5); WBC 6.6 10x3/uL (4.8-10.8)
[2017-03-21 06:16] LABS: INR 2.88 (0.85-1.17); PROTIME 30.4 SECONDS (11.6-15.0)
[2017-03-21 07:22] LABS: ANION GAP 9.9 mmol/L (8-16); CALCIUM 9.2 mg/dL (8.5-10.1); CARBON DIOXIDE 30.3 mmol/L (21.0-32.0); CREATININE - SERUM 1.8 mg/dL (0.6-1.3); POTASSIUM - SERUM 4.2 mmol/L (3.5-5.1)
[2017-03-21 08:34] VITALS: BP 157/44
--- NOTE | 2017-03-21 08:45 | NUR ---
PT AM MEDS ADMINISTERED. PT DENIES NEEDS. WCTM.
--- NOTE | 2017-03-21 12:30 | NUR ---
PT SITTING UP IN WC EATING LUNCH, DENIES NEEDS. WCTM.
--- NOTE | 2017-03-21 16:42 | NUR ---
PT RESTING IN ROOM, DENIES NEEDS. WCTM.
[2017-03-21 19:41] VITALS: BP 168/79
--- NOTE | 2017-03-21 19:41 | NUR ---
UP SITTING IN W/C. FAMILY AT BEDSIDE. PLEASANT AND TALKATIVE. DENIES ANY PAIN AT THIS TIME.
--- NOTE | 2017-03-21 21:22 | NUR ---
AMBULATING AROUND ROOM WITH A WALKER. CHANGED INTO PAJAMA'S WITHOUT ASSIST. PLEASANT AND COOPERATIVE. DENIES ANY PAIN AT THIS TIME. CALL LIOGHT AND OVERBED TABLE IN REACH.
--- NOTE | 2017-03-22 02:26 | NUR ---
UP AMBULATING IN ROOM. STATED SHE GOT SCARED BECAUSE HER B/R LIGHT WAS ON AND DID'NT REMEMBER LEAVING IT ON. STATED "DID'NT YOU HEAR ME CALLING OUT MOMMA AND DADDY". THIS NURSE WAS IN ANOTHER PT ROOM AT THE TIME. EXPLAINED THAT SHE HAD REQUESTED TO LEAVE LIGHT ON. THEN APPEARERD TO CALM DOWN AND STATED "OKAY. I'M GOING BACK TO BED".
[2017-03-22 06:09] LABS: INR 2.85 (0.85-1.17); PROTIME 30.1 SECONDS (11.6-15.0)
--- NOTE | 2017-03-22 06:13 | NUR ---
AWAKE AND ALERT IN BED THIS MORNING. PLEASANT AND TALKATIVE. DENIES ANY PAIN. CALL LIGHT IN REACH.
[2017-03-22 08:28] VITALS: BP 130/45
--- NOTE | 2017-03-22 08:30 | NUR ---
PT AM MEDS ADMINISTERED. PT DENIES NEEDS AT THIS TIME. BED LOW. CL IN REACH.
[2017-03-22] MEDS ORDERED: HYDROCODON-ACE1 EAC7 PO (09:02)
[2017-03-22] MEDS ORDERED: COUMADIN2 MG PO (09:15)
--- NOTE | 2017-03-22 10:54 | NUR ---
PT SITTING UP IN ROOM READING. DENIES NEEDS. WCTM.
--- NOTE | 2017-03-22 10:55 | NUR ---
PATIENT DISCHARING HOME WITH [facility] FOR HOME HEALTH. HOUSE CALLS WILL SEE PATIENT IN 3-5 DAYS. [facility] WILL DELIVER A ROLLING WALKER AND TUB TRANSFER BENCH. DR. LOCKE 04/11/17 @ 10:20, DR. AKBAR WILL SEE JOSÉ MIGUEL [facility]. PATIENT CHOICE FOR HOME HEALTH AND [facility] FORM SIGNED, EXPLAINED AND FILED IN CHART. ORDERS HAVE BEEN FAXED WITH CONFORMATION RECIEVED
--- NOTE | 2017-03-22 15:00 | NUR ---
PT DISCHARGE INSTRUCTIONS REVIEWED. MEDS REVIEWED AND CALLED IN TO PHARMACY. PT ESCORTED OUT BY HOSPITAL STAFF AND ASSISTED INTO VEHICLE. SEAT BELT IN PLACE.
== END 2017-03-22 15:27 | disposition home health service (06) | DRG 57 ==
LOC: D.REHAB 18:40
PROVIDERS: ADMIT Emergency Medicine
DX: I69.320 Aphasia following cerebral infarction (principal); B19.10 Unspecified viral hepatitis B without hepatic coma; N17.9 Acute kidney failure, unspecified; I69.398 Other sequelae of cerebral infarction; R48.9 Unspecified symbolic dysfunctions; L03.116 Cellulitis of left lower limb; L03.115 Cellulitis of right lower limb; R53.83 Other fatigue; R53.1 Weakness; R42 Dizziness and giddiness; F41.9 Anxiety disorder, unspecified; Z99.81 Dependence on supplemental oxygen; I48.91 Unspecified atrial fibrillation; E11.9 Type 2 diabetes mellitus without complications; Z95.0 Presence of cardiac pacemaker; K21.9 Gastro-esophageal reflux disease without esophagitis; R60.0 Localized edema; Z79.01 Long term (current) use of anticoagulants; E87.6 Hypokalemia; I25.10 Atherosclerotic heart disease of native coronary artery without angina pectoris

== ENCOUNTER 2017-05-01 11:36 | Emergency (ER) | payer MEDICARE, OTHER ==
[2017-03-15 10:45] VITALS: BMI 37.6
[~2017-05-01 11:36] MED LIST changes: +COUMADIN2 MG PO
== END 2017-05-01 14:29 | disposition home or self-care (01) ==
LOC: D.ER 11:36
DX: S00.93XA Contusion of unspecified part of head, initial encounter (principal); W19.XXXA Unspecified fall, initial encounter; Y93.89 Activity, other specified; Y92.029 Unspecified place in mobile home as the place of occurrence of the external cause; L03.116 Cellulitis of left lower limb; L03.115 Cellulitis of right lower limb; Z85.118 Personal history of other malignant neoplasm of bronchus and lung; I48.2 Chronic atrial fibrillation; Z86.73 Personal history of transient ischemic attack (TIA), and cerebral infarction without residual deficits; Z79.01 Long term (current) use of anticoagulants

== ENCOUNTER 2017-05-03 00:52 | Inpatient (IN) | payer MEDICARE, OTHER ==
[~2017-05-03] VITALS: Ht 180.3 cm; Wt 124.7 kg
[2017-05-03 01:50] LABS: BASOPHILS 0.5 % (0-2); EOSINOPHILS 0.5 % (0-7); HEMATOCRIT 25.6 % (36.0-48.0); HEMOGLOBIN 7.8 g/dL (12-16); IMMATURE GRANULOCYTES 0.3 % (0-5); LYMPHOCYTES 13.1 % (15-50); MCH 24.7 pg (26.0-34.0); MCHC 30.5 g/dL (31.0-37.0); MEAN PLATELET VOLUME 9.6 fL (7.4-10.4); MONOCYTES 15.2 % (2-11); NEUTROPHILS 70.4 % (40-80); PLATELET COUNT 607 10x3/uL (130-400); RBC 3.16 10x6/uL (4.00-5.40); RDW 15.5 % (11.5-14.5)
[2017-05-03 02:02] LABS: BILIRUBIN - TOTAL 0.7 mg/dL (0.2-1.3); CALCIUM 8.9 mg/dL (8.5-10.1); CARBON DIOXIDE 29.4 mmol/L (21.0-32.0); CREATININE - SERUM 1.6 mg/dL (0.6-1.3); POTASSIUM - SERUM 3.4 mmol/L (3.5-5.1); PROTEIN - SERUM 6.2 g/dL (6.4-8.2)
[2017-05-03 03:23] LABS: APPEARANCE CLEAR (CLEAR); BILIRUBIN NEGATIVE (NEGATIVE); COLOR YELLOW (YELLOW); GLUCOSE NEGATIVE (NEGATIVE); KETONE NEGATIVE (NEGATIVE); NITRITE NEGATIVE (NEGATIVE); PROTEIN NEGATIVE (NEGATIVE); SPECIFIC GRAVITY 1.015 (1.005-1.020); UROBILINOGEN NORMAL (NORMAL)
[2017-05-03 05:20] VITALS: BP 160/52; BMI 38.4
--- NOTE | 2017-05-03 05:20 | NUR ---
REC'D INTO ROOM 2206 AM 81 Y/O W/FE FROM ER DEPT PER STRETCHER WITH DX CELLULITIS BOTH LEGS. DRESSINGS X2 TO BOTH LOWER EXTREMITES. WRAPPED IN GUAZE AND STOCKINGETTE ON LEGS. 4+ EDEMA NOTED WITH DRY FLAKEY SKIN TO FEET.BOTH LEGS ELEVATED ON PILLOWS.ASSESSMENT PER ADMIT PACKET.
--- NOTE | 2017-05-03 08:27 | NUR ---
AWAKE AND ALERT. ORIENTED X3. NO C/O AT THIS TIME. LUNGS ARE CLEAR BILATERALLY, NO COUGH NOTED. SKIN IS INTACT WITHOUT REDNESS EXCEPT EDEMA AND REDNESS TO BILATERAL LOWER EXTREMETIES. SHE REPORTS THIS ONGOING. IV TO LEFT WRIST IS PATENT WITHOUT REDNESS AT INSERTION SITE. DENIES NEEDS AT THIS TIME.
[2017-05-03 09:37] VITALS: BP 152/53
--- NOTE | 2017-05-03 10:00 | NUR ---
ASSISTED WITH BED LEE VOIDED 300 CC CLEAR YELLOW URINE. SKIN CARE PER STAFF. REPOSITIONED IN BED FOR COMFORT.
[2017-05-03 12:25] VITALS: Ht 180.3 cm; Wt 124.7 kg
[2017-05-03 13:06] VITALS: BP 149/44
[2017-05-03 15:58] VITALS: BP 143/42
--- NOTE | 2017-05-03 18:13 | NUR ---
OT NOTE: PT COMPLETED BUE AROM EXS FOR INCREASED ENDURANCE. PT COMPLETED SIMPLE ADL WITH SET UP. THANK YOU, ZACK BRANTLEY/Ezequiel
--- NOTE | 2017-05-03 18:23 | NUR ---
DR WITT UNWRAPPED LEGS APPROX 1630. BILAT SWELLING NOTED 3+ EDEMA. SOME WEEPING NOTED. LEFT OPEN TO AIR AT PRESENT. CALL LIGHT IN REACH
[2017-05-03] MEDS ORDERED: MUCINEX600 MG PO (19:20)
[2017-05-03 20:00] VITALS: BP 158/84
[2017-05-03 20:23] LABS: INR 1.34 (0.85-1.17); PROTIME 16.5 SECONDS (11.6-15.0)
[2017-05-04] VITALS (15 sets, daily range): BP systolic 116–154; BP diastolic 34–70
[2017-05-04 05:58] LABS: BASOPHILS 0.2 % (0-2); EOSINOPHILS 1.2 % (0-7); HEMATOCRIT 23.1 % (36.0-48.0); IMMATURE GRANULOCYTES 0.2 % (0-5); LYMPHOCYTES 7.8 % (15-50); MCHC 30.7 g/dL (31.0-37.0); MCV 81.3 fL (80.0-100.0); MEAN PLATELET VOLUME 9.7 fL (7.4-10.4); MONOCYTES 7.9 % (2-11); NEUTROPHILS 82.7 % (40-80); PLATELET COUNT 540 10x3/uL (130-400); RBC 2.84 10x6/uL (4.00-5.40); RDW 15.9 % (11.5-14.5); WBC 8.5 10x3/uL (4.8-10.8)
[2017-05-04 06:11] LABS: HEMOGLOBIN 7.1 g/dL (12-16)
[2017-05-04 06:13] LABS: ALBUMIN 2.6 g/dL (3.4-5.0); ANION GAP 11.4 mmol/L (8-16); BILIRUBIN - TOTAL 0.6 mg/dL (0.2-1.3); CALCIUM 8.2 mg/dL (8.5-10.1); CARBON DIOXIDE 29.6 mmol/L (21.0-32.0); CREATININE - SERUM 1.8 mg/dL (0.6-1.3); PROTEIN - SERUM 5.6 g/dL (6.4-8.2)
[2017-05-04 06:16] LABS: INR 1.37 (0.85-1.17); PROTIME 16.8 SECONDS (11.6-15.0)
--- NOTE | 2017-05-04 07:30 | NUR ---
RECEIVED PT DURING WALKING ROUNDS. PT RESTING IN BED WITH COMPLAINTS OF PAIN OF A 6 ON A SCALE OF 1-10. NO MEDICATION TO BE GIVEN AT THIS TIME. ASSESSMENT DONE PER FLOWSHEET. BED IN LOW POSITION AND CALL LIGHT WITHIN REACH. WILL CONTINUE TO MONITOR.
[2017-05-04 10:05] LABS: MAGNESIUM - SERUM 1.8 mg/dL (1.8-2.4); PHOSPHOROUS 3.3 mg/dL (2.5-4.9)
--- NOTE | 2017-05-04 12:17 | NUR ---
OT NOTE: PT SEEN IN AM; PT WAS IN DISTRESS, SHE HAD TO GO TO BATHROOM . ASSISTED PT ONTO BED LEE, REQUIRED MOD ASSIST FOR ROLLING SIDE TO SIDE ; PT UNABLE TO PERFORM ANY TOILET HYGIENE. CLEANED PT AND CHANGED PADS ON BED. PT REPORTED THAT SHE WANTED TO SIT UP..PHYS THERAPY ASSISTED WITH SUPINE TO SIT WITH MOD ASSIST; ABLE TO MAINTAIN STATIC SITTING ON EDGE OF BED APPROX 15 MIN. PT WAS ATTEMPTING TO TAKE MEDS, HOWEVER, VERY SHAKY AND UNABLE TO BRING THEM TO MOUTH WITHOUT DROPPING..NURSE ASSISTED . PT BECAME VERY ANXIOUS STATING THAT SHE WAS TIRED AND HAD TO LIE DOWN.. EXPLAINED THAT SHE NEEDED TO SIT UP TO FINISH TAKING MEDS. REQUIRED MAX ASSIST FOR SIT TO SUPINE, MAX ASSIST FOR BED MOB. POSITIONED IN BED WITH LES ON PILLOW AND ELEVATED . EDUCATED ON ANKLE PUMP EXS TO ASSIST WITH EDEMA
--- NOTE | 2017-05-04 15:17 | NUR ---
HOME MEDS FROM PHARMACY SENT HOME WITH PTS DAUGHTER AT THIS TIME.
--- NOTE | 2017-05-04 16:00 | NUR ---
FIRST UNIT OF PRBC'S ADMINISTERED AT THIS TIME, WITNESSED BY RAJ LEBRON RN. WILL MONITOR PER PROTOCOL.
[2017-05-05 05:05] VITALS: BP 146/49
[2017-05-05 06:24] LABS: BASOPHILS 0.3 % (0-2); EOSINOPHILS 4.7 % (0-7); HEMATOCRIT 26.3 % (36.0-48.0); HEMOGLOBIN 8.4 g/dL (12-16); IMMATURE GRANULOCYTES 0.3 % (0-5); LYMPHOCYTES 15.3 % (15-50); MCH 25.8 pg (26.0-34.0); MCHC 31.9 g/dL (31.0-37.0); MCV 80.9 fL (80.0-100.0); MEAN PLATELET VOLUME 9.6 fL (7.4-10.4); MONOCYTES 13.3 % (2-11); NEUTROPHILS 66.1 % (40-80); PLATELET COUNT 464 10x3/uL (130-400); RBC 3.25 10x6/uL (4.00-5.40); RDW 15.5 % (11.5-14.5); WBC 7.7 10x3/uL (4.8-10.8)
[2017-05-05 06:45] LABS: ALBUMIN 2.4 g/dL (3.4-5.0); ANION GAP 10.6 mmol/L (8-16); BILIRUBIN - TOTAL 0.8 mg/dL (0.2-1.3); CALCIUM 8.2 mg/dL (8.5-10.1); CARBON DIOXIDE 29.6 mmol/L (21.0-32.0); INR 1.41 (0.85-1.17); POTASSIUM - SERUM 3.2 mmol/L (3.5-5.1); PROTEIN - SERUM 5.6 g/dL (6.4-8.2); PROTIME 17.2 SECONDS (11.6-15.0)
--- NOTE | 2017-05-05 08:07 | NUR ---
AWAKE AND ALERT. ORIENTED X3. C/O PAIN IN LEFT HEEL. REPOSITIONED WITH HEELS UP ON PILLOWS, WILL MONITOR. BOTH HEELS ARE SOFT BUT JALYN. LUNGS ARE CLEAR BILATERALLY, NO COUGH NOTED. SKIN IS INTACT WITHOUT REDNSS EXCEPT REDNESS AND EDEMA TO BILATERAL LOWER EXTREMETIES, WHICH IS NOT NEW. WILL CONTINUE TO MONITOR. IV TO LEFT HAND PATNET WITHOUT REDNESS AT ISNERTION SITE. DENEIS NEEDS AT THIS TIME.
[2017-05-05 08:33] VITALS: BP 141/45
--- NOTE | 2017-05-05 09:45 | NUR ---
INCONTINENT OF URINE. LINENS CHANGED. SKIN CARE PER STAFF. VERY ANXIOUS THIS AM. WILL MONITOR.
--- NOTE | 2017-05-05 11:10 | NUR ---
VERY ANXIOUS AT THIS TIME. GIVEN 1 MG ATIVAN PO FOR SAME.
--- NOTE | 2017-05-05 12:15 | NUR ---
LUNCH SERVED IN ROOM. REPOSITIONED IN BED SO SHE CAN FEED SELF. CONTINUES TO C/O PAIN AND NUMBNESS TO LEFT ARM. NO BRUISING OR EDEMA NOTED TO ARM. WILL MONITOR.
[2017-05-05 12:26] VITALS: BP 146/51
--- NOTE | 2017-05-05 14:30 | NUR ---
RESTING QUIETLY IN BED. DENIES NEEDS. NO C/O AT THIS TIME.
[2017-05-05 17:06] VITALS: BP 152/54
--- NOTE | 2017-05-05 19:47 | NUR ---
REFUSED SUPPER TRAY. ATE ONLY A FEW BITES OF SANDWICH OFFERED ALTERNATIVE. DAUGHTER AT BEDSIDE. NO CHANGES NOTED. DENIES NEEDS.
[2017-05-05 21:56] VITALS: BP 167/58
--- NOTE | 2017-05-06 00:16 | NUR ---
PT WOKE UP DISORIENTED AND KICKING OFF HEEL PROTECTORS. PT INCONTINENT OF URINE. PLACED ON BEDPAN TO FINISH VOIDING. CHANGED BEDPAD AND TURNED PT. BED ALARM ON. WILL CONTINUE TO MONITOR.
[2017-05-06 00:26] VITALS: BP 157/52
[2017-05-06 05:47] VITALS: BP 159/58
[2017-05-06 06:13] LABS: BASOPHILS 0.5 % (0-2); EOSINOPHILS 6.7 % (0-7); HEMATOCRIT 27.5 % (36.0-48.0); HEMOGLOBIN 8.7 g/dL (12-16); IMMATURE GRANULOCYTES 0.1 % (0-5); LYMPHOCYTES 17.4 % (15-50); MCH 25.7 pg (26.0-34.0); MCHC 31.6 g/dL (31.0-37.0); MCV 81.1 fL (80.0-100.0); MEAN PLATELET VOLUME 10.2 fL (7.4-10.4); MONOCYTES 13.4 % (2-11); NEUTROPHILS 61.9 % (40-80); PLATELET COUNT 521 10x3/uL (130-400); RBC 3.39 10x6/uL (4.00-5.40); RDW 16.1 % (11.5-14.5); WBC 7.4 10x3/uL (4.8-10.8)
[2017-05-06 06:28] LABS: INR 1.41 (0.85-1.17); PROTIME 17.1 SECONDS (11.6-15.0)
[2017-05-06 06:34] LABS: ALBUMIN 2.5 g/dL (3.4-5.0); BILIRUBIN - TOTAL 0.68 mg/dL (0.2-1.3); CALCIUM 8.6 mg/dL (8.5-10.1); CARBON DIOXIDE 27.4 mmol/L (21.0-32.0); CREATININE - SERUM 1.8 mg/dL (0.6-1.3)
[2017-05-06 06:35] LABS: ANION GAP 14.3 mmol/L (8-16); POTASSIUM - SERUM 3.7 mmol/L (3.5-5.1)
--- NOTE | 2017-05-06 06:35 | NUR ---
APPLIED 02 2L NC F102 29% [id number]
--- NOTE | 2017-05-06 07:30 | NUR ---
AWAKE AND ALERT. CONFUSED AT THIS TIME. EASILY REORIENTED PER STAFF. WILL MONITOR. LUNGS ARE CLEAR BILATERALLY, NO COUGH NOTED. SKIN IS INTACT WITHOUT REDNESS. IV TO LEFT FOREARM IS PATENT WITHOUT REDNESS AT INSERTION SITE. INCONTINENT LARGE AMOUNT OF URINE. ASSISTED WITH BED LEE. LINENS CHANGED AND SKIN CARE PER STAFF.
[2017-05-06 08:10] VITALS: BP 131/41
--- NOTE | 2017-05-06 09:30 | NUR ---
SECOND BREAKFAST TRAY SERVED. ASSISTED TO START EATING. DENIES NEEDS. STILL SOMEWHAT CONFUSED.
--- NOTE | 2017-05-06 11:00 | NUR ---
UP TO CHAIR AT BEDSIDE PER PT. REPORTEDLY WAS A TOTAL LIFT. PATIENT REPORTED IT FEELS GOOD TO BE UP.
--- NOTE | 2017-05-06 12:15 | NUR ---
LUNCH SERVED IN ROOM. FAMILY HERE. ENCOURAGED TO EAT MUCH POSSIBLE. DAUGHTER IS ASSISTING WITH MEAL.
[2017-05-06 12:51] VITALS: BP 165/54
--- NOTE | 2017-05-06 13:30 | NUR ---
BACK TO BED PER PT, TOTAL LIFT. REQUESTED AND GIVEN ONE HYDROCODONE PO FOR C/O BACK PAIN. WILL MONITOR.
--- NOTE | 2017-05-06 15:00 | NUR ---
REHAB PRESCREEN THE PAIENT WILL BE A GOOD CANAIDATE FOR REHAB, BUT WILL NEED TO PROGRESS SOME MORE WITH THERAPY TO QUALIFY FOR ADMISSION CRITERIA. WE WILL MONITOR THE PATIENTS PROGRESSION AND REEVAL IN A FEW DAYS. THANK YOU FOR THIS EVAL. REHAB CLINICAL LIASION IRINEO ADAM LPN
--- NOTE | 2017-05-06 18:00 | NUR ---
REQUESTED AND GIVEN 15MG OXY IR PO FOR C/O BACK PAIN LEVEL 5. WILL MONITOR. FSBS 86. NO ACTION TAKEN. REFUSED SUPPER AT THIS TIME.
--- NOTE | 2017-05-06 18:12 | NUR ---
CONTINUES VERY CONFUSED. DAUGHTER LEFT FOR THE EVENING. NO CHANGES NOTED. ATTEMPTS TO REORIENT WITH ONLY SHORT TERM SUCCESS
--- NOTE | 2017-05-06 21:25 | NUR ---
GIVEN MEDS WITH APPLE SAUCE, AND PT STATES:" I LIKE APPLE SAUCE."
[2017-05-06 22:33] VITALS: BP 126/40
--- NOTE | 2017-05-06 23:10 | NUR ---
RN NOTE: PT LYING IN LOW CABRAL'S POSITION WITH EYES CLOSED...HAVING UPDRAFT TREATMENT AT THIS TIME. HEEL PROTECTORS IN PLACE. IV IN LEFT WRIST PATENT WITH NS INFUSING AT 10 ML / HR. O2 IN USE VIA NC AT 2L. WILL CONTINUE TO MONITOR FOR NEEDS. BED ALARM IN USE. SIDE RAILS UP X2 FOR SAFETY.
--- NOTE | 2017-05-06 23:48 | NUR ---
PT INCOTINENCE, CLEAN, CHANGE GOWN AND LINEN.
[2017-05-07 01:36] VITALS: BP 131/84
--- NOTE | 2017-05-07 02:19 | NUR ---
REST IN BED, EYE CLOSE, BED LOW.WILL MONITOR CLOSELY.
[2017-05-07 05:04] VITALS: BP 161/57
[2017-05-07 05:13] LABS: BASOPHILS 0.4 % (0-2); EOSINOPHILS 6.3 % (0-7); HEMATOCRIT 29.2 % (36.0-48.0); IMMATURE GRANULOCYTES 0.3 % (0-5); LYMPHOCYTES 21.3 % (15-50); MCH 25.2 pg (26.0-34.0); MCHC 30.8 g/dL (31.0-37.0); MCV 81.8 fL (80.0-100.0); MEAN PLATELET VOLUME 9.9 fL (7.4-10.4); MONOCYTES 13.9 % (2-11); NEUTROPHILS 57.8 % (40-80); PLATELET COUNT 530 10x3/uL (130-400); RBC 3.57 10x6/uL (4.00-5.40); RDW 16.3 % (11.5-14.5); WBC 7.4 10x3/uL (4.8-10.8)
[2017-05-07 05:33] LABS: INR 1.47 (0.85-1.17); PROTIME 17.7 SECONDS (11.6-15.0)
[2017-05-07 05:52] LABS: ALBUMIN 2.7 g/dL (3.4-5.0); ANION GAP 13.8 mmol/L (8-16); BILIRUBIN - TOTAL 0.63 mg/dL (0.2-1.3); CALCIUM 8.8 mg/dL (8.5-10.1); CARBON DIOXIDE 28.6 mmol/L (21.0-32.0); CREATININE - SERUM 1.6 mg/dL (0.6-1.3); POTASSIUM - SERUM 3.4 mmol/L (3.5-5.1); PROTEIN - SERUM 6.1 g/dL (6.4-8.2)
--- NOTE | 2017-05-07 06:25 | NUR ---
PARKING LOT CHAUFFEUR CALLED PT HAS SEIZURES LIKE ACTIVITY, CALLED RAPID RESPOND AND REPORTED TO CHARGE NURSE, CALL STRAINER TENDER.
--- NOTE | 2017-05-07 06:30 | NUR ---
PT STATES SHE FEEL LIKE HAS A LOT OF GAS IN STOMACH.
--- NOTE | 2017-05-07 06:45 | NUR ---
PT STOP SEIZURES LIKE ACTIVITY, AND REST IN BED, CONTINUE MONITOR CLOSELY.
--- NOTE | 2017-05-07 08:04 | NUR ---
PT HAVING SEIZURE LIKE ACTIVITY WITH EYES TWITCHING AND LEFT ARM WITH MUSCLE SPASMS IN UPPER ARM-ABLE TO TALK AND CONVERSE WITH NURSE. INCONT OF URINE. CLEANED AND NEW LINENS APPLIED. ACTIVITY LASTED APPROX. 5 MINS. DAUGHTER AT BEDSIDE.CALL LIGHT IN REACH
[2017-05-07 08:21] VITALS: BP 159/48
--- NOTE | 2017-05-07 11:54 | NUR ---
PT COMPLAINING OF DISCOMFORT AND DRIBBING. ORDER FOR I/O CATH-700CC CLEAR YELLOW URINE NOTED. STATES RELIEFT. DAUGHTER AT BEDSIDE
--- NOTE | 2017-05-07 12:25 | NUR ---
Wound care consult: Redness and edema noted to bilateral lower extremities. Skin is rough and bumpy. There are dried scabs scattered on both LE. Recommend keeping legs elevated, clean and dry.
[2017-05-07 12:28] LABS: APPEARANCE CLEAR (CLEAR); COLOR STRAW (YELLOW); GLUCOSE NEGATIVE (NEGATIVE); KETONE NEGATIVE (NEGATIVE); NITRITE NEGATIVE (NEGATIVE); PROTEIN NEGATIVE (NEGATIVE)
[2017-05-07 12:29] LABS: BACTERIA FEW /hpf (NONE SEEN); BILIRUBIN NEGATIVE (NEGATIVE); EPITHELIAL CELLS 0-5 /hpf (0-5); MUCUS <1+ /lpf (NONE SEEN); RED CELLS - URINE OCC /hpf (0-5); UROBILINOGEN NORMAL (NORMAL); WHITE CELLS - URINE 0-5 /hpf (0-5)
[2017-05-07 13:28] VITALS: BP 149/51
--- NOTE | 2017-05-07 14:26 | NUR ---
NUTRITION F/U CHART REVIEWED, PT VISIT. REFUSING RECENT MEALS. DENIES CONSTIPATION BUT ALSO STATES SHE HAS NOT HAD A BM "IN TWO OR THREE DAYS". WILL CONTINUE TO MONITOR PT PROGRESS. RD FOLLOWING
[2017-05-07 16:13] VITALS: BP 153/56
--- NOTE | 2017-05-07 19:15 | NUR ---
RECIEVED SHIFT REPORT. PT IS LYING IN BED. ALERT AND ORIENTED AND ABLE TO VERBALIZE NEEDS. IV IS PATENT AND SALINE LOC AT THIS TIME. PT REQUIRES SOME ASSISTANCE TURNING IN BED FOR COMFORT AND SKIN CARE. O2 @ 2 PER NASAL CANNULA. PT STATES PAIN IS 5/10. NO NEEDS ARE VERBALIZED AT THIS TIME. WILL CONTINUE TO MONITOR. SIDE RAILS ARE UP X 2. BED IS IN LOWEST POSITION. BED ALARM IS ON FOR SAFETY. CALL LIGHT IS WITHIN REACH.
--- NOTE | 2017-05-07 20:58 | NUR ---
SHIFT ASSESSMENT COMPLETED. NIGHT MEDS GIVEN WITH NO PROBLEMS. NO NEEDS ARE VOICED. WILL MONITOR. SIDE RAILS X 2. BED LOW. BED ALARM ON. CALL LIGHT IN REACH.
[2017-05-08] VITALS: BP 161/54
--- NOTE | 2017-05-08 01:36 | NUR ---
INSERTED 16F INDWELLING DAHL AT THIS TIME. RECIEVED BACK 1000ML YELLOW URINE. PT TOLERATED WELL. SIDE RAILS X 2. BED LOW. CALL LIGHT IN REACH. DAUGHTER AT BEDSIDE.
--- NOTE | 2017-05-08 01:47 | NUR ---
AFTER INSERTION OF DAHL DAUGHTER STATED THAT HER MOTHER NEEDED A PAIN PILL. I ASKED PT IF SHE WAS HURTING AND WANTED A PAIN PILL AND PT STATES NO. AFTER LEAVING ROOM DAUGHTER CAME OUT OF ROOM AND STATED THAT HER MOTHER SAID SHE WANTED A PAIN PILL NOW. AGAIN I WENT INTO ROOM AND ASKED PT IF SHE WANTED A PAIN PILL AND PT STATED NO. DAUGHTER IS INSISTING AND TELLING PT THAT SHE NEEDS TO TAKE PAIN PILL. LITO GARZON IS OUTSIDE OF ROOM ALL OF THIS IS UNFOLDING. I AGAIN INSTRUCTED THE DAUGHTER THAT THE PT IS SAYING NO TO THE PAIN PILL AND THAT I DO NOT FEEL COMFORTABLE GIVING PAIN PILL UNNECESSARILY. PT DAUGHTER THEN STATED THAT THE PT IS CONFUSED AND DOES NOT KNOW WHAT SHE WANTS. I INSTRUCTED THE DAUGHTER THAT IT WOULD NOT BE [place] TO ADMINISTER MIND ALTERING MEDICATION TO MASK ANY CONDITIONS. AGAIN PT STATES SHE DOES NOT WANT A PAIN PILL. I INSTRUCTED THE DAUGHTER THAT I WOULD COME BACK AND REASSESS PAIN. I GOT TO THE DESK TO CALL COUNSELING CASE MANAGER. PT DAUGHTER THEN CAME OUT TO THE DESK YELLING AND STATING THAT SHE WANTED HER MOTHER MOVED TO [facility] RIGHT NOW AND CALL THE DOCTOR. I INSTRUCTED DAUGHTER THAT THE DOCTOR WOULD BE MAKING ROUNDS IN THE MORNING AND WE COULD ADDRESS THAT THEN. PT YELLING AT THE DESK AT THIS TIME. I ASKED PT TO PLEASE LOWER HER VOICE. PT STATES "I WILL NOT SHUT THE HELL UP." I INSTRUCTED PT THAT I AGAIN WOULD NEED HER TO LOWER HER VOICE. PT STILL SHOUTING. I AM STILL ON THE PHONE WITH THE COUNSELING CASE MANAGER AT THIS TIME AND GOT OFF TO CALL SECURITY.
[2017-05-08 01:48] VITALS: BP 140/42
--- NOTE | 2017-05-08 02:00 | NUR ---
CAMOUFLAGE SPECIALIST AND SECURITY UP HERE AT THIS TIME.
[2017-05-08 04:00] VITALS: BP 140/44
[2017-05-08 06:03] LABS: BASOPHILS 0.4 % (0-2); EOSINOPHILS 2.4 % (0-7); HEMATOCRIT 30.5 % (36.0-48.0); HEMOGLOBIN 9.6 g/dL (12-16); IMMATURE GRANULOCYTES 0.3 % (0-5); LYMPHOCYTES 16.1 % (15-50); MCHC 31.5 g/dL (31.0-37.0); MCV 82.7 fL (80.0-100.0); MONOCYTES 13.1 % (2-11); NEUTROPHILS 67.7 % (40-80); PLATELET COUNT 542 10x3/uL (130-400); RBC 3.69 10x6/uL (4.00-5.40); RDW 16.8 % (11.5-14.5); WBC 7.9 10x3/uL (4.8-10.8)
[2017-05-08 06:20] LABS: INR 1.57 (0.85-1.17); PROTIME 18.8 SECONDS (11.6-15.0)
[2017-05-08 06:33] LABS: ALBUMIN 2.7 g/dL (3.4-5.0); ANION GAP 16.5 mmol/L (8-16); BILIRUBIN - TOTAL 0.64 mg/dL (0.2-1.3); CALCIUM 9.1 mg/dL (8.5-10.1); CARBON DIOXIDE 27.1 mmol/L (21.0-32.0); CREATININE - SERUM 1.7 mg/dL (0.6-1.3); POTASSIUM - SERUM 3.6 mmol/L (3.5-5.1); PROTEIN - SERUM 6.4 g/dL (6.4-8.2)
--- NOTE | 2017-05-08 07:00 | NUR ---
REPORT RECEIVED, ASSUMED CARE OF PT. PT RESTING WITH EYES SHUT, EASILY AROUSED. DAUGHTER AT BEDSIDE. L FOREARM IV SALINE LOCKED, DRSG C/D/I. DAHL CATHETER IN PLACE, PATENT, DRAINING, SECURED TO LEG WITH STAT-LOCK. NO NEEDS VOICED AT THIS TIME. BED IN LOWEST POSITION, SIDE RAILS UP X 2, CALL LIGHT WITHIN REACH.
[2017-05-08 09:40] VITALS: BP 153/52
--- NOTE | 2017-05-08 11:08 | NUR ---
Patient Name: DAMIAN POWELL Admission Status: ER Accout number: [id number] Admission Date: 05-03-2017 : 1935 Admission Diagnosis:WEAKNESS Attending: JORGE WITT Current LOS: 5 Anticipated DC Date: Planned Disposition: [facility] Facility Primary Insurance: MEDICARE A & B Discharge Planning Comments: CM met with roxi Sun to assess discharge planning needs. Patient lives at home with her daughter. Daughter stated that she is the home health care case manager for her mom and she is current with [facility] and had a nursing unit manager who come 1 hr a day. She is also a patient of [facility]. Daughter stated that she wants her to go to the [facility] or to inpatient rehab. The daughter did not make much sense when I had the conversation with her. Patient has a walker, wheelchair, oxygen, cane at home. CM will continue to follow and assist with discharge planning needs. PCP: Naomie Light by sylvia Sun (daughter) Associate Professor Of Engineering: Hafsa Baptiste Patient Name: DAMIAN POWELL Admission Status: ER Accout number: [id number] Admission Date: 05-03-2017 : 1935 Admission Diagnosis:WEAKNESS Attending: JORGE WITT Current LOS: 5 Anticipated DC Date: Planned Disposition: [facility] Facility Primary Insurance: MEDICARE A & B Discharge Planning Comments: CM met with roxi Sun to assess discharge planning needs. Patient lives at home with her daughter. Daughter stated that she is the home health care case manager for her mom and she is current with [facility] and had a nursing unit manager who come 1 hr a day. She is also a patient of [facility]. Daughter stated that she wants her to go to the [facility] or to inpatient rehab. The daughter did not make much sense when I had the conversation with her. Patient has a walker, wheelchair, oxygen, cane at home. CM will continue to follow and assist with discharge planning needs. PCP: Naomie Light by sylvia Sun (daughter) Associate Professor Of Engineering: Hafsa Baptiste * Is the patient Alert and Oriented? Yes 0 * How many steps to enter\\exit or inside your home? 1 0 * PCP NAOMIE 0 * Pharmacy [facility] [address] 0 * Preadmission Environment Home with Family 0 * ADLs Independent 0 * Equipment Cane Oxygen Rolling Walker Walker Wheelchair 0 * List name and contact numbers for known caregivers / representatives who currently or will assist patient after discharge: EN (DAUGHTER) 0 * Community resources currently utilized Home Health Other 0 * Please name any agencies selected above. [facility] 0 * Additional services required to return to the preadmission environment? Yes 0 * Can the patient safely return to the preadmission environment? Yes 0 * Has this patient been hospitalized within the prior 30 days at any hospital? No 0 Grand Total: 0
[2017-05-08 17:46] VITALS: BP 146/31
--- NOTE | 2017-05-08 19:36 | NUR ---
PT IS SITTING IN BED WHILE KENY BOONEE IS OBTAINING V/S. PT HAS FORMER SON IN LAW AT BEDSIDE VISITING, PT VOICED VERY HUNGRY AND HAD MISSED DINNER, ASKED HER WHAT SHE WOULD LIKE AND PT REQUESTED VANILLA PUDDING. FED PATIENT ABOUT HALF A CONTAINER BEFORE PT STATED SHE WAS FULL. PT VISIOTR ON PHONE WITH DAUGHTER EN AT THIS TIME AND ADVISED HER PT IS DOING WELL AND HAVING PUDDING. HE HUNG UP WITH DAUGHTER AND THEN PT'S ROOM PHONE RANG, PT VISITOR ANSWERED AND IT WAS PT'S DAUGHTER CHECKING ON PT AGAIN, HE INSISTED PT IS ALRIGHT AND EATING AND DOING WELL. PT REQUESTED TURKEY SANDWICH, OBTAINED SANDWICH FOR PT AND REASSURED PT VISITOR PT IS BEING TAKEN CARE OF. NO OTHER NEEDS OICED, PT BED IN LOWEST POSTION CL IN REACH
[2017-05-08 20:00] VITALS: BP 106/46
--- NOTE | 2017-05-08 21:46 | NUR ---
PT IS LYING IN BED ON BACK SIDE. EYES ARE CLOSED, EVEN RISE AND FALL OF CHEST, PT VISITOR STATED LEAVING FOR THE EVENING, NO SIGNS OF DISTRESS, WILL CONTINUE PLAN OF CARE
[2017-05-09 04:00] VITALS: BP 143/50
[2017-05-09 06:16] LABS: BASOPHILS 0.4 % (0-2); EOSINOPHILS 3.2 % (0-7); HEMATOCRIT 30.4 % (36.0-48.0); HEMOGLOBIN 9.4 g/dL (12-16); IMMATURE GRANULOCYTES 0.1 % (0-5); MCH 25.9 pg (26.0-34.0); MCHC 30.9 g/dL (31.0-37.0); MCV 83.7 fL (80.0-100.0); MEAN PLATELET VOLUME 10.2 fL (7.4-10.4); MONOCYTES 13.6 % (2-11); NEUTROPHILS 65.7 % (40-80); PLATELET COUNT 556 10x3/uL (130-400); RBC 3.63 10x6/uL (4.00-5.40); RDW 17.2 % (11.5-14.5); WBC 7.9 10x3/uL (4.8-10.8)
[2017-05-09 06:43] LABS: ALBUMIN 2.4 g/dL (3.4-5.0); ANION GAP 13.6 mmol/L (8-16); BILIRUBIN - TOTAL 0.4 mg/dL (0.2-1.3); CALCIUM 9.1 mg/dL (8.5-10.1); CARBON DIOXIDE 28.9 mmol/L (21.0-32.0); CREATININE - SERUM 1.6 mg/dL (0.6-1.3); POTASSIUM - SERUM 3.5 mmol/L (3.5-5.1)
--- NOTE | 2017-05-09 08:24 | NUR ---
AWAKE AND ALERT. ORIENTED X3. LUNGS ARE CLEAR BILATERALLY, NO COUGH NOTED. SKIN IS INTACT IWTHOUT REDNESS EXCEPT REDNESS TO BILATERAL LOWER EXTREMETIES WHICH IS MUCH IMPROVED FROM ADMISSION. SL TO LEFT FOREARM IS PATENT WITHOUT REDNESS AT ISNERTION SITE. DAHL PATENT WITH WITH CLEAR YELLOW URINE. DENIES NEEDS.
--- NOTE | 2017-05-09 08:30 | NUR ---
ASSISTED WITH MEAL PER STAFF. ATE ONLY A FEW BITES OF EGG AND BISCUIT.REFUSED MORE AT THIS TIME.
[2017-05-09 08:49] VITALS: BP 169/47
[2017-05-09] MEDS ORDERED: COUMADIN3 MG PO (09:10)
[2017-05-09] MEDS ORDERED: OMNICEF300 MG PO (09:11)
--- NOTE | 2017-05-09 10:43 | NUR ---
OT NOTE: PT VERY CONFUSED AGAIN TODAY. PT WAS ORIENTED TO PERSON AND PLACE, AND DID REMEMBER THAT SECURITY WAS CALLED ON HER DTR. HOWEVER, HAS NO MEMORY OF SITTING ON EDGE OF BED, TIME OF DAY, CONTINUED TO REPORT THAT PHONE WAS RINGING BUT WAS NOT. PERFORMED A/AROM WITH R UE. ATTEMPTED ROM ON L SIDE AND PT BEGAN SCREAMING. CONTINUED TO YELL EVEN AFTER THERAPIST STOPPED TOUCHING HER. REPORTED THAT HER FACE AND L ARM AND L LEG WERE HURTING. NURSE PROVIDING MEDS. PT CONTINUALLY CRYING AND STATING THAT SHE JUST WANTED TO .. EASILY REDIRECTED ON ALL THINGS, EXCLUDING PAIN IN L UE.
--- NOTE | 2017-05-09 11:00 | NUR ---
RESTING QUIETLY IN BED. WILL HOLLAR OUT OCCASSIONALLY FOR NO REASON.
[2017-05-09 13:56] VITALS: BP 137/69
--- NOTE | 2017-05-09 14:54 | NUR ---
patient being discharging to [facility] via EMS to a skilled bed, call made to nga (daughter) to let her know that her mom would be discharging today.
--- NOTE | 2017-05-09 15:00 | NUR ---
REPORT CALLED TO SAM COOPER LPN AT THE [facility]. ALL QUESTIONS ANSWERED. SL TO LEFT FOREARM D/C WITH CATHETER INTACT.
[2017-05-09 15:50] VITALS: BP 154/47
--- NOTE | 2017-05-09 18:20 | NUR ---
DISCHARGED TO THE [facility] VIA AMBULANCE AT THIS TIME. DAUGHTER HERE, BIMAL, AT TIME OF DISCHARGE.
== END 2017-05-09 19:45 | DRG 292 ==
LOC: D.ER 00:52 → D.MS 01:54 → D.ER 01:54 → D.MS 05-09 19:45
PROVIDERS: Emergency Medicine; ADMIT Family Medicine
DX: I11.0 Hypertensive heart disease with heart failure (principal); L03.116 Cellulitis of left lower limb; N17.9 Acute kidney failure, unspecified; L03.115 Cellulitis of right lower limb; I50.31 Acute diastolic (congestive) heart failure; E11.9 Type 2 diabetes mellitus without complications; K75.9 Inflammatory liver disease, unspecified; Z95.0 Presence of cardiac pacemaker; I48.91 Unspecified atrial fibrillation; Z79.01 Long term (current) use of anticoagulants; D64.9 Anemia, unspecified; I65.29 Occlusion and stenosis of unspecified carotid artery; I87.2 Venous insufficiency (chronic) (peripheral); I08.3 Combined rheumatic disorders of mitral, aortic and tricuspid valves

== ENCOUNTER 2017-05-14 11:24 | Observation (INO) | payer MEDICARE, OTHER ==
[~2017-05-14] VITALS: Ht 180.3 cm; Wt 111.6 kg
[~2017-05-14 11:24] MED LIST changes: +OMNICEF300 MG PO
[2017-05-14 12:32] LABS: BASOPHILS 0.6 % (0-2); EOSINOPHILS 2.4 % (0-7); HEMATOCRIT 35.2 % (36.0-48.0); HEMOGLOBIN 10.7 g/dL (12-16); IMMATURE GRANULOCYTES 0.4 % (0-5); LYMPHOCYTES 22.9 % (15-50); MCH 25.7 pg (26.0-34.0); MCHC 30.4 g/dL (31.0-37.0); MCV 84.4 fL (80.0-100.0); MEAN PLATELET VOLUME 9.8 fL (7.4-10.4); NEUTROPHILS 61.7 % (40-80); PLATELET COUNT 548 10x3/uL (130-400); RBC 4.17 10x6/uL (4.00-5.40); RDW 17.4 % (11.5-14.5); WBC 6.7 10x3/uL (4.8-10.8)
[2017-05-14 13:17] LABS: APTT 33.2 SECONDS (22.8-39.4); INR 2.14 (0.85-1.17); PROTIME 23.9 SECONDS (11.6-15.0)
[2017-05-14 13:28] LABS: CALC OSMOLALITY 286 mosm/kg (275-300); CALCIUM 8.9 mg/dL (8.5-10.1); CARBON DIOXIDE 29.7 mmol/L (21.0-32.0); CHLORIDE - SERUM 102 mmol/L (98-107); CKMB 0.2 U/L (0.0-3.6); CREATINE KINASE 67 UL (21-215); CREATININE - SERUM 1.2 mg/dL (0.6-1.3); GLUCOSE 118 mg/dL (74-106); POTASSIUM - SERUM 4.3 mmol/L (3.5-5.1); SODIUM 140 mmol/L (136-145); TROPONIN-I 0.028 ng/mL (0.000-0.060); UREA NITROGEN 33 mg/dL (7-18); eGFR NON AFRICAN AMERICAN 45 mL/min (90-120)
[2017-05-14 15:00] LABS: APPEARANCE HAZY (CLEAR); BILIRUBIN NEGATIVE (NEGATIVE); COLOR YELLOW (YELLOW); GLUCOSE NEGATIVE (NEGATIVE); KETONE NEGATIVE (NEGATIVE); NITRITE NEGATIVE (NEGATIVE); PROTEIN TRACE mg/dL (NEGATIVE); UROBILINOGEN NORMAL (NORMAL)
[2017-05-14 15:04] LABS: EPITHELIAL CELLS 25-50 /hpf (0-5)
[2017-05-14 15:05] LABS: BACTERIA FEW /hpf (NONE SEEN)
[2017-05-14 17:32] LABS: CKMB 0.7 U/L (0.0-3.6); CREATINE KINASE 50 UL (21-215); TROPONIN-I 0.027 ng/mL (0.000-0.060)
[2017-05-14 22:46] VITALS: BP 168/51
[2017-05-14 22:49] LABS: CKMB 1.5 U/L (0.0-3.6); CREATINE KINASE 67 UL (21-215); TROPONIN-I 0.026 ng/mL (0.000-0.060)
[2017-05-15 04:16] LABS: BASOPHILS 0.7 % (0-2); EOSINOPHILS 3.8 % (0-7); HEMATOCRIT 31.4 % (36.0-48.0); HEMOGLOBIN 9.5 g/dL (12-16); IMMATURE GRANULOCYTES 0.2 % (0-5); MCH 25.2 pg (26.0-34.0); MCHC 30.3 g/dL (31.0-37.0); MCV 83.3 fL (80.0-100.0); MEAN PLATELET VOLUME 9.7 fL (7.4-10.4); MONOCYTES 12.9 % (2-11); NEUTROPHILS 47.4 % (40-80); PLATELET COUNT 543 10x3/uL (130-400); RBC 3.77 10x6/uL (4.00-5.40); RDW 17.3 % (11.5-14.5); WBC 5.5 10x3/uL (4.8-10.8)
--- NOTE | 2017-05-15 04:39 | NUR ---
PT SLEEPING, BED IS LOW, SRX2, CALL LIGHT IN REACH, WILL CONTINUE PLAN OF CARE
[2017-05-15 04:47] LABS: ALBUMIN 2.5 g/dL (3.4-5.0); ALKALINE PHOSPHATASE 60 U/L (46-116); ALT (SGPT) 15 U/L (10-68); CALC OSMOLALITY 288 mosm/kg (275-300); CALCIUM 8.5 mg/dL (8.5-10.1); CARBON DIOXIDE 31.3 mmol/L (21.0-32.0); CHLORIDE - SERUM 104 mmol/L (98-107); CKMB 0.4 U/L (0.0-3.6); CREATINE KINASE 32 UL (21-215); CREATININE - SERUM 1.3 mg/dL (0.6-1.3); GLUCOSE 96 mg/dL (74-106); PROTEIN - SERUM 5.9 g/dL (6.4-8.2); SODIUM 142 mmol/L (136-145); TROPONIN-I 0.034 ng/mL (0.000-0.060); UREA NITROGEN 30 mg/dL (7-18); eGFR NON AFRICAN AMERICAN 41 mL/min (90-120)
[2017-05-15 04:48] LABS: POTASSIUM - SERUM 3.3 mmol/L (3.5-5.1)
[2017-05-15 04:55] VITALS: Ht 180.3 cm; Wt 111.6 kg
[2017-05-15 05:05] VITALS: BP 163/52
--- NOTE | 2017-05-15 07:12 | NUR ---
AM ROUNDING- RECEIVED REPORT FROM DRAWBENCH OPERATOR HELPER NURSE SAKINA. PT IS CURRENTLY SITTING UP IN BED WITH EYES OPEN RESTING. ON 02 AT 3L VIA NC. ON MONITOR SHOWING PACED, HR 60. IV SEEN TO RIGHT FOREARM WITH NS RUNNING AT 125CC. NO NEED AT THIS CURRENT TIME. WILL CONTINUE TO MONITOR AND CONTINUE WITH PLAN OF CARE.
[2017-05-15 08:00] VITALS: BP 161/46
[2017-05-15 12:00] VITALS: BP 163/41
--- NOTE | 2017-05-15 13:31 | NUR ---
Patient Name: DAMIAN POWELL Admission Status: ER Accout number: [id number] Admission Date: 05-14-2017 : 1935 Admission Diagnosis: Attending: MAYUR BOTELLO Current LOS: 1 Anticipated DC Date: 05-15-2017 Planned Disposition: Alf Facility Primary Insurance: MEDICARE A & B [facility], MEDICARE REHAB BED Discharge Planning Comments: * Is the patient Alert and Oriented? Yes 0 * How many steps to enter\exit or inside your home? NONE 0 * PCP DR. AKBAR 0 * [facility] 0 * Preadmission Environment Alf Facility 0 * [facility] * ADLs Partial Dependent 0 * Partial ADLs (Assistance needed) Ambulation Bathing Dressing Medication Management Transfers 0 * Equipment Other 0 * Other Equipment ALL MEDICAL EQUIPMENT PROVIDED BY [facility] HOME EQUIPMENT: HOME AND PORTABLE OXYGEN, WALKER, WHEELCHAIR CANE AND LIFT CHAIR FROM [facility] PATIENT 0 * List name and contact numbers for known caregivers / representatives who currently or will assist patient after discharge: BIMALJennifer HAM, DTR, 0 * Community resources currently utilized None 0 * Please name any agencies selected above. NONE 0 * Additional services required to return to the preadmission environment? No 0 * Can the patient safely return to the preadmission environment? Yes 0 * Has this patient been hospitalized within the prior 30 days at any hospital? Yes 0 CM RECEIVED DISCHARGE ORDER, MET WITH PT IN ROOM TO DISCUSS DISCHARGE PLANNING AND NEEDS. PT REPORTS SHE IS CURRENTLY IN REHAB AT THE [facility] AND WILL BE GOING BACK FOR REHAB WITH GOAL TO RETURN HOME WHEN STRONGER. PT HAS ALL NEEDED MEDICAL EQUIPMENT AT THE FACILITY. PT REPORTS SHE THINKS SHE HAS NOTIFIED HER DAUGHTER, BIMAL OF RETURN TO REHAB TODAY. PT IS NOT SURE OF HOW SHE WILL GET BACK TO THE CUSTODIAL. CM EXPLAINED THAT THE [facility] WILL SEND A VAN TO PICK HER UP. CM CALLED VINNIE, CLINICAL LIAISON FOR THE [facility], , VERIFIED PT'S STATUS IN REHAB BED FOR RETURN TODAY. CM FAXED REFERRAL AND DISCHARGE INFORMATION TO THE [facility] VIA VINNIE AT [phone]. FOR DISCHARGE TO THE [facility], NURSE REPORT TO BE CALLED TO THE [facility] AT [phone]. THE [facility] TO ARRANGE VAN TRANSPORATION FOR COFFEE URN ATTENDANT TODAY. Sizing Sponger: Tima Galindo
--- NOTE | 2017-05-15 15:09 | NUR ---
D/C INSTRUCTIONS EXPLAINED TO PT. D/C PAPERWORK SIGNED BY PT AND PLACED IN CHART. IV TO RIGHT FOREARM REMOVED WITH CATH TIP INTACT. COVERED SITE WITH 2X2 GUAZE PADS AND SECURED WITH TAPE. WILL CALL REPORT TO THE [facility] AND CONTINUE TO MONITOR.
--- NOTE | 2017-05-15 15:18 | NUR ---
CALL[facility] REPORT TO [facility] AND GAVE REPORT TO FESTUS GREY. QUE STATES SHE DOES NOT KNOW WHEN THE VAN WILL COME TO TRANSPORT PT. I GAVE FESTUS GREY CALLBACK NUMBER TO LET ME KNOW. WILL CONTINUE TO MONITOR.
[2017-05-15 15:39] VITALS: BP 146/55
--- NOTE | 2017-05-15 16:22 | NUR ---
PT D/C VIA WHEELCHAIR WITH [facility].
== END 2017-05-15 16:22 ==
LOC: D.ER 11:24 → D.M2 17:44 → OBSVTIME 17:44 → D.M2 17:44
PROVIDERS: Family Medicine; ADMIT Emergency Medicine
DX: G45.9 Transient cerebral ischemic attack, unspecified (principal); Z86.73 Personal history of transient ischemic attack (TIA), and cerebral infarction without residual deficits; I25.10 Atherosclerotic heart disease of native coronary artery without angina pectoris; Z95.0 Presence of cardiac pacemaker; I48.91 Unspecified atrial fibrillation; Z79.01 Long term (current) use of anticoagulants; M06.9 Rheumatoid arthritis, unspecified; I10 Essential (primary) hypertension; E11.9 Type 2 diabetes mellitus without complications; K75.9 Inflammatory liver disease, unspecified

== ENCOUNTER 2017-07-05 12:28 | Inpatient (IN) | payer MEDICARE, OTHER ==
[~2017-07-05] VITALS: Ht 162.6 cm; Wt 138.8 kg
--- NOTE | ~2017-07-05 | CN ---
PATIENT NAME:DAMIAN POWELL MEDICAL RECORD: [id number] : 34 LOCATION:D.M2 D.2102 ADMIT DATE: 07/05/17 ACCOUNT: [id number] CONSULTING PHYSICIAN: INEZ TAYLOR III, MD REFERRING PHYSICIAN: TONY HOWE MD DATE OF CONSULTATION: 07/23/2017 FINDINGS: This is an 81-year-old white female, who was admitted to the hospital on July 05 with evidence of congestive heart failure and bilateral lower extremity edema. The patient has a very complicated medical situation with numerous ongoing comorbidities including hypertension, coronary artery disease, chronic cardiac arrhythmias, type 2 diabetes, history of lung cancer, hepatitis B, GERD, and past history of CVA. Consultation was requested due to the fact the patient has been showing some mental status changes. Affect has become very brittle. The patient becomes easily angered and easily frustrated. She is also exhibiting sensorium changes as well. On exam today, the patient is somewhat irritable. She complains of the dressings on her left leg feeling too tight. Affect is brittle. Speech shows frequent word finding pauses. Content of thought focuses primarily on somatic complaints. There is no evidence of psychosis. On sensorium testing, the patient was unaware that she was in the hospital. She asked the examiner exactly where she was. She could not recall how long she has been here. Remote memory appears to be relatively intact, but intermediate and short-term memory and concentration are all severely impaired. 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 RECOMMENDATIONS: At the present time, there is no immediate need for aggressive treatment. As the patient stabilizes, consideration may be given to starting a low dose of Namenda on a regular basis. The patient should show some moderate improvement as her medical situation stabilizes. TRANSINT:[id number] Voice Confirmation ID: [id number] DOCUMENT ID: [id number] INEZ TAYLOR III, MD at 1053 CC: [id number] DICTATION DATE: 07/23/17 1314 CLINICAL PROGRAM CONSULTANT: 07/23/17 1341 [place] [address]
[2017-07-05 14:52] LABS: BASOPHILS 0.2 % (0-2); EOSINOPHILS 2.8 % (0-7); HEMATOCRIT 26.2 % (36.0-48.0); HEMOGLOBIN 7.9 g/dL (12-16); IMMATURE GRANULOCYTES 0.2 % (0-5); LYMPHOCYTES 45.1 % (15-50); MCH 23.7 pg (26.0-34.0); MCHC 30.2 g/dL (31.0-37.0); MCV 78.4 fL (80.0-100.0); MEAN PLATELET VOLUME 9.3 fL (7.4-10.4); NEUTROPHILS 40.7 % (40-80); PLATELET COUNT 569 10x3/uL (130-400); RBC 3.34 10x6/uL (4.00-5.40); RDW 19.4 % (11.5-14.5); WBC 9.1 10x3/uL (4.8-10.8)
[2017-07-05 15:22] LABS: ALBUMIN 2.7 g/dL (3.4-5.0); ANION GAP 12.9 mmol/L (8-16); BILIRUBIN - TOTAL 0.2 mg/dL (0.2-1.3); CALCIUM 8.6 mg/dL (8.5-10.1); CARBON DIOXIDE 26.9 mmol/L (21.0-32.0); CREATININE - SERUM 2.3 mg/dL (0.6-1.3); POTASSIUM - SERUM 3.8 mmol/L (3.5-5.1)
[2017-07-05 16:01] LABS: APPEARANCE CLEAR (CLEAR); BILIRUBIN NEGATIVE (NEGATIVE); COLOR STRAW (YELLOW); GLUCOSE NEGATIVE (NEGATIVE); KETONE NEGATIVE (NEGATIVE); NITRITE NEGATIVE (NEGATIVE); PROTEIN NEGATIVE (NEGATIVE); SPECIFIC GRAVITY 1.015 (1.005-1.020); UROBILINOGEN NORMAL (NORMAL)
[2017-07-05 22:03] VITALS: BP 135/69
[2017-07-05 22:10] VITALS: BP 135/69; BMI 48.1
[2017-07-05 23:54] VITALS: BP 125/33
[2017-07-06 04:49] VITALS: BP 134/45
[2017-07-06 08:01] VITALS: BP 146/46
[2017-07-06 10:36] VITALS: BMI 48.2
[2017-07-06 12:07] VITALS: Ht 162.6 cm; Wt 138.8 kg
[2017-07-06 12:33] VITALS: BP 128/40
[2017-07-06 13:02] LABS: INR 2.64 (0.85-1.17); PROTIME 27.5 SECONDS (11.6-15.0)
[2017-07-06 13:03] LABS: APTT 41.4 SECONDS (22.8-39.4)
[2017-07-06 16:06] VITALS: BP 110/48
[2017-07-06 19:00] VITALS: BP 106/93
[2017-07-07 04:00] VITALS: BP 139/54
[2017-07-07 05:07] LABS: HEMATOCRIT 23.5 % (36.0-48.0); MCH 24.2 pg (26.0-34.0); MCHC 30.6 g/dL (31.0-37.0); MCV 78.9 fL (80.0-100.0); MEAN PLATELET VOLUME 9.3 fL (7.4-10.4); PLATELET COUNT 550 10x3/uL (130-400); RBC 2.98 10x6/uL (4.00-5.40); RDW 19.8 % (11.5-14.5); WBC 7.7 10x3/uL (4.8-10.8)
[2017-07-07 05:16] LABS: HEMOGLOBIN 7.2 g/dL (12-16)
[2017-07-07 05:22] LABS: BASOPHILS 1 % (0-2); EOSINOPHILS 4 % (0-7); LYMPHOCYTES 50 % (15-50); MONOCYTES 10 % (2-11); NEUTROPHILS 34 % (40-80); PLATELET ESTIMATE INCREASED
[2017-07-07 05:56] LABS: % SATURATION 7 % (15-55); IRON 21 ug/dl (35-150); TOTAL IRON BIND CAPACITY 280 ug/dl (260-445); UNSAT IRON BIND CAPACITY 259 ug/dl (150-375)
[2017-07-07 06:07] LABS: ANION GAP 14.1 mmol/L (8-16); CALCIUM 8.9 mg/dL (8.5-10.1); CARBON DIOXIDE 27.2 mmol/L (21.0-32.0); CREATININE - SERUM 2.3 mg/dL (0.6-1.3); POTASSIUM - SERUM 3.3 mmol/L (3.5-5.1)
[2017-07-07 07:43] VITALS: BP 111/58
[2017-07-07 11:53] VITALS: BP 95/53
[2017-07-07 15:52] VITALS: BP 97/53
[2017-07-07 21:26] VITALS: BP 108/45
[2017-07-08 01:29] VITALS: BP 118/41
[2017-07-08 05:37] LABS: BASOPHILS 0.4 % (0-2); EOSINOPHILS 3.1 % (0-7); HEMATOCRIT 25.8 % (36.0-48.0); IMMATURE GRANULOCYTES 0.1 % (0-5); LYMPHOCYTES 38.7 % (15-50); MCH 24.8 pg (26.0-34.0); MCV 80.1 fL (80.0-100.0); MEAN PLATELET VOLUME 9.7 fL (7.4-10.4); MONOCYTES 12.7 % (2-11); PLATELET COUNT 528 10x3/uL (130-400); RBC 3.22 10x6/uL (4.00-5.40); WBC 7.7 10x3/uL (4.8-10.8)
[2017-07-08 05:52] LABS: INR 2.76 (0.85-1.17); PROTIME 28.5 SECONDS (11.6-15.0)
[2017-07-08 05:53] LABS: CALCIUM 8.3 mg/dL (8.5-10.1); CARBON DIOXIDE 26.3 mmol/L (21.0-32.0); CREATININE - SERUM 2.5 mg/dL (0.6-1.3); POTASSIUM - SERUM 3.3 mmol/L (3.5-5.1)
[2017-07-08 08:22] VITALS: BP 107/42
[2017-07-08 12:55] VITALS: BP 107/32
[2017-07-08 16:25] VITALS: BP 100/30
[2017-07-08 21:27] VITALS: BP 118/73
[2017-07-09 01:46] VITALS: BP 115/42
[2017-07-09 05:40] VITALS: BP 129/42
[2017-07-09 06:18] LABS: BASOPHILS 0.4 % (0-2); EOSINOPHILS 4.8 % (0-7); HEMATOCRIT 25.9 % (36.0-48.0); HEMOGLOBIN 8.1 g/dL (12-16); IMMATURE GRANULOCYTES 0.2 % (0-5); LYMPHOCYTES 41.2 % (15-50); MCH 25.5 pg (26.0-34.0); MCHC 31.3 g/dL (31.0-37.0); MCV 81.4 fL (80.0-100.0); MEAN PLATELET VOLUME 9.9 fL (7.4-10.4); MONOCYTES 11.3 % (2-11); NEUTROPHILS 42.1 % (40-80); PLATELET COUNT 524 10x3/uL (130-400); RBC 3.18 10x6/uL (4.00-5.40); RDW 20.8 % (11.5-14.5); WBC 8.2 10x3/uL (4.8-10.8)
[2017-07-09 06:42] LABS: ANION GAP 13.7 mmol/L (8-16); CALCIUM 8.2 mg/dL (8.5-10.1); CREATININE - SERUM 2.5 mg/dL (0.6-1.3); POTASSIUM - SERUM 3.7 mmol/L (3.5-5.1)
[2017-07-09 08:49] VITALS: BP 135/38; BP 155/80
[2017-07-09 12:11] LABS: FOLATE (FOLIC ACID) - SERUM 4.2 ng/mL (>3.0)
[2017-07-09 12:52] VITALS: BP 132/40; BP 147/79
[2017-07-09 16:14] VITALS: BP 136/95; BP 141/43
[2017-07-09 19:00] VITALS: BP 120/80
[2017-07-10 04:00] VITALS: BP 106/38
[2017-07-10 06:05] LABS: BASOPHILS 0.3 % (0-2); EOSINOPHILS 4.2 % (0-7); HEMATOCRIT 27.5 % (36.0-48.0); HEMOGLOBIN 8.4 g/dL (12-16); IMMATURE GRANULOCYTES 0.2 % (0-5); LYMPHOCYTES 44.2 % (15-50); MCH 24.9 pg (26.0-34.0); MCHC 30.5 g/dL (31.0-37.0); MCV 81.4 fL (80.0-100.0); MEAN PLATELET VOLUME 10.1 fL (7.4-10.4); MONOCYTES 12.1 % (2-11); PLATELET COUNT 539 10x3/uL (130-400); RBC 3.38 10x6/uL (4.00-5.40); RDW 21.1 % (11.5-14.5); WBC 9.1 10x3/uL (4.8-10.8)
[2017-07-10 06:26] LABS: INR 2.87 (0.85-1.17); PROTIME 29.4 SECONDS (11.6-15.0)
[2017-07-10 06:36] LABS: ALBUMIN 2.5 g/dL (3.4-5.0); ANION GAP 15.4 mmol/L (8-16); BILIRUBIN - TOTAL 0.4 mg/dL (0.2-1.3); CALCIUM 8.3 mg/dL (8.5-10.1); CARBON DIOXIDE 24.8 mmol/L (21.0-32.0); CREATININE - SERUM 2.2 mg/dL (0.6-1.3); POTASSIUM - SERUM 3.2 mmol/L (3.5-5.1); PROTEIN - SERUM 5.9 g/dL (6.4-8.2); VANCOMYCIN - RANDOM 20.5 ug/mL (10.0-20.0)
[2017-07-10 07:24] LABS: SPE - ALBUMIN 2.6 g/dL (2.9-4.4); SPE - ALPHA-1 GLOBULIN 0.3 g/dL (0.0-0.4); SPE - ALPHA-2 GLOBULIN 0.6 g/dL (0.4-1.0); SPE - BETA GLOBULIN 0.8 g/dL (0.7-1.3); SPE - GAMMA GLOBULIN 0.9 g/dL (0.4-1.8); SPE - M-SPIKE Not Observed g/dL (Not Observed); SPE - TOTAL PROTEIN 5.3 g/dL (6.0-8.5)
[2017-07-10 08:00] VITALS: BP 108/38
[2017-07-10 13:48] VITALS: BP 120/45
[2017-07-10 20:46] VITALS: BP 140/43
[2017-07-10 23:44] VITALS: BP 122/42
[2017-07-11 04:46] VITALS: BP 101/37
[2017-07-11 05:36] LABS: BASOPHILS 0.3 % (0-2); EOSINOPHILS 4.3 % (0-7); HEMATOCRIT 26.9 % (36.0-48.0); HEMOGLOBIN 8.3 g/dL (12-16); IMMATURE GRANULOCYTES 0.2 % (0-5); LYMPHOCYTES 39.7 % (15-50); MCH 25.2 pg (26.0-34.0); MCHC 30.9 g/dL (31.0-37.0); MCV 81.5 fL (80.0-100.0); MONOCYTES 11.2 % (2-11); NEUTROPHILS 44.3 % (40-80); PLATELET COUNT 521 10x3/uL (130-400); RDW 21.2 % (11.5-14.5); WBC 8.7 10x3/uL (4.8-10.8)
[2017-07-11 06:09] LABS: ALBUMIN 2.4 g/dL (3.4-5.0); BILIRUBIN - TOTAL 0.32 mg/dL (0.2-1.3); CALCIUM 8.4 mg/dL (8.5-10.1); CARBON DIOXIDE 26.3 mmol/L (21.0-32.0); CREATININE - SERUM 2.2 mg/dL (0.6-1.3); POTASSIUM - SERUM 3.3 mmol/L (3.5-5.1); PROTEIN - SERUM 5.9 g/dL (6.4-8.2); VANCOMYCIN - RANDOM 18.2 ug/mL (10.0-20.0)
[2017-07-11 09:33] VITALS: BP 124/43
[2017-07-11 13:26] VITALS: BP 121/38
[2017-07-11 19:00] VITALS: BP 134/45
[2017-07-12 04:00] VITALS: BP 150/45
[2017-07-12 06:58] LABS: HEMATOCRIT 26.6 % (36.0-48.0); HEMOGLOBIN 8.3 g/dL (12-16); LYMPHOCYTES 37.4 % (15-50); MCH 25.2 pg (26.0-34.0); MCHC 31.2 g/dL (31.0-37.0); MCV 80.6 fL (80.0-100.0); MEAN PLATELET VOLUME 10.3 fL (7.4-10.4); NEUTROPHILS 45.5 % (40-80); PLATELET COUNT 452 10x3/uL (130-400); RDW 21.6 % (11.5-14.5); WBC 10.1 10x3/uL (4.8-10.8)
[2017-07-12 07:11] LABS: ALBUMIN 2.6 g/dL (3.4-5.0); ANION GAP 14.3 mmol/L (8-16); BILIRUBIN - TOTAL 0.5 mg/dL (0.2-1.3); CALCIUM 8.7 mg/dL (8.5-10.1); CARBON DIOXIDE 27.2 mmol/L (21.0-32.0); CREATININE - SERUM 1.9 mg/dL (0.6-1.3); POTASSIUM - SERUM 3.5 mmol/L (3.5-5.1); PROTEIN - SERUM 6.2 g/dL (6.4-8.2)
[2017-07-12 08:32] VITALS: BP 130/85
[2017-07-12 14:36] LABS: % SATURATION 8 % (15-55); IRON 26 ug/dl (35-150); TOTAL IRON BIND CAPACITY 312 ug/dl (260-445); UNSAT IRON BIND CAPACITY 286 ug/dl (150-375)
[2017-07-12 21:52] VITALS: BP 127/38
[2017-07-13 06:17] VITALS: BP 132/44
[2017-07-13 06:37] LABS: INR 3.93 (0.85-1.17); PROTIME 37.6 SECONDS (11.6-15.0)
[2017-07-13 06:40] LABS: BASOPHILS 0.4 % (0-2); EOSINOPHILS 4.4 % (0-7); HEMATOCRIT 27.6 % (36.0-48.0); HEMOGLOBIN 8.2 g/dL (12-16); IMMATURE GRANULOCYTES 0.2 % (0-5); LYMPHOCYTES 47.8 % (15-50); MCH 24.6 pg (26.0-34.0); MCHC 29.7 g/dL (31.0-37.0); MEAN PLATELET VOLUME 10.5 fL (7.4-10.4); MONOCYTES 11.1 % (2-11); NEUTROPHILS 36.1 % (40-80); PLATELET COUNT 491 10x3/uL (130-400); RBC 3.33 10x6/uL (4.00-5.40); RDW 21.9 % (11.5-14.5)
[2017-07-13 06:42] LABS: MCV 82.9 fL (80.0-100.0)
[2017-07-13 06:54] LABS: ALBUMIN 2.6 g/dL (3.4-5.0); ANION GAP 13.8 mmol/L (8-16); BILIRUBIN - TOTAL 0.5 mg/dL (0.2-1.3); CALCIUM 8.9 mg/dL (8.5-10.1); CARBON DIOXIDE 28.3 mmol/L (21.0-32.0); CREATININE - SERUM 1.8 mg/dL (0.6-1.3); POTASSIUM - SERUM 3.1 mmol/L (3.5-5.1); PROTEIN - SERUM 6.2 g/dL (6.4-8.2)
[2017-07-13 08:49] VITALS: BP 149/47
[2017-07-13 12:29] VITALS: BP 124/74
[2017-07-13 17:00] VITALS: BP 118/80
[2017-07-13 20:30] VITALS: BP 131/39
[2017-07-14 06:21] VITALS: BP 133/45
[2017-07-14 06:34] LABS: BASOPHILS 0.3 % (0-2); EOSINOPHILS 4.7 % (0-7); HEMATOCRIT 27.4 % (36.0-48.0); HEMOGLOBIN 8.2 g/dL (12-16); IMMATURE GRANULOCYTES 0.2 % (0-5); LYMPHOCYTES 34.7 % (15-50); MCH 24.6 pg (26.0-34.0); MCHC 29.9 g/dL (31.0-37.0); MEAN PLATELET VOLUME 9.8 fL (7.4-10.4); MONOCYTES 13.2 % (2-11); NEUTROPHILS 46.9 % (40-80); PLATELET COUNT 488 10x3/uL (130-400); RBC 3.34 10x6/uL (4.00-5.40); RDW 21.3 % (11.5-14.5)
[2017-07-14 07:04] LABS: ALBUMIN 2.6 g/dL (3.4-5.0); ANION GAP 12.4 mmol/L (8-16); BILIRUBIN - TOTAL 0.41 mg/dL (0.2-1.3); CARBON DIOXIDE 29.7 mmol/L (21.0-32.0); CREATININE - SERUM 1.7 mg/dL (0.6-1.3); POTASSIUM - SERUM 3.1 mmol/L (3.5-5.1); PROTEIN - SERUM 5.6 g/dL (6.4-8.2)
[2017-07-14 08:03] VITALS: BP 132/38
[2017-07-14 11:17] LABS: INR 4.27 (0.85-1.17); PROTIME 40.2 SECONDS (11.6-15.0)
[2017-07-14 12:22] VITALS: BP 100/32
[2017-07-14 17:26] VITALS: BP 126/42
[2017-07-14 22:08] VITALS: BP 116/47
[2017-07-15 01:23] VITALS: BP 129/46
[2017-07-15 05:24] LABS: BASOPHILS 0.4 % (0-2); HEMATOCRIT 28.7 % (36.0-48.0); HEMOGLOBIN 8.6 g/dL (12-16); IMMATURE GRANULOCYTES 0.1 % (0-5); LYMPHOCYTES 42.8 % (15-50); MCH 24.9 pg (26.0-34.0); MCV 83.2 fL (80.0-100.0); MEAN PLATELET VOLUME 10.7 fL (7.4-10.4); MONOCYTES 11.2 % (2-11); NEUTROPHILS 38.5 % (40-80); PLATELET COUNT 557 10x3/uL (130-400); RBC 3.45 10x6/uL (4.00-5.40); RDW 21.1 % (11.5-14.5); WBC 8.3 10x3/uL (4.8-10.8)
[2017-07-15 05:32] LABS: ANION GAP 10.3 mmol/L (8-16); CALCIUM 8.5 mg/dL (8.5-10.1); CARBON DIOXIDE 31.9 mmol/L (21.0-32.0); CREATININE - SERUM 1.8 mg/dL (0.6-1.3); POTASSIUM - SERUM 3.2 mmol/L (3.5-5.1)
[2017-07-15 05:33] LABS: INR 4.24 (0.85-1.17); PROTIME 39.9 SECONDS (11.6-15.0)
[2017-07-15 05:58] VITALS: BP 122/48
[2017-07-15 08:08] VITALS: BP 130/46
[2017-07-15 11:40] VITALS: BP 121/39
[2017-07-15 16:16] VITALS: BP 126/34
[2017-07-15 21:39] VITALS: BP 141/41
[2017-07-16 00:54] VITALS: BP 164/79
[2017-07-16 04:27] LABS: BASOPHILS 0.7 % (0-2); EOSINOPHILS 6.5 % (0-7); HEMATOCRIT 27.8 % (36.0-48.0); HEMOGLOBIN 8.2 g/dL (12-16); IMMATURE GRANULOCYTES 0.1 % (0-5); LYMPHOCYTES 41.6 % (15-50); MCH 24.7 pg (26.0-34.0); MCHC 29.5 g/dL (31.0-37.0); MCV 83.7 fL (80.0-100.0); MEAN PLATELET VOLUME 10.6 fL (7.4-10.4); MONOCYTES 10.7 % (2-11); NEUTROPHILS 40.4 % (40-80); PLATELET COUNT 519 10x3/uL (130-400); RBC 3.32 10x6/uL (4.00-5.40); RDW 21.2 % (11.5-14.5); WBC 7.4 10x3/uL (4.8-10.8)
[2017-07-16 04:41] LABS: INR 3.83 (0.85-1.17); PROTIME 36.9 SECONDS (11.6-15.0)
[2017-07-16 04:44] LABS: ANION GAP 10.4 mmol/L (8-16); CALCIUM 8.5 mg/dL (8.5-10.1); CARBON DIOXIDE 32.1 mmol/L (21.0-32.0); CREATININE - SERUM 1.8 mg/dL (0.6-1.3); POTASSIUM - SERUM 3.5 mmol/L (3.5-5.1)
[2017-07-16 06:02] VITALS: BP 136/41
[2017-07-16 09:46] VITALS: BP 165/57
[2017-07-16 16:29] VITALS: BP 135/43
[2017-07-16 19:00] VITALS: BP 114/35
[2017-07-17] VITALS: BP 131/39
[2017-07-17 05:06] LABS: BASOPHILS 0.6 % (0-2); EOSINOPHILS 5.7 % (0-7); HEMATOCRIT 25.9 % (36.0-48.0); HEMOGLOBIN 7.7 g/dL (12-16); IMMATURE GRANULOCYTES 0.1 % (0-5); LYMPHOCYTES 47.9 % (15-50); MCH 24.5 pg (26.0-34.0); MCHC 29.7 g/dL (31.0-37.0); MCV 82.5 fL (80.0-100.0); MEAN PLATELET VOLUME 10.4 fL (7.4-10.4); MONOCYTES 11.4 % (2-11); NEUTROPHILS 34.3 % (40-80); PLATELET COUNT 542 10x3/uL (130-400); RBC 3.14 10x6/uL (4.00-5.40); WBC 8.6 10x3/uL (4.8-10.8)
[2017-07-17 05:08] LABS: INR 3.23 (0.85-1.17); PROTIME 32.2 SECONDS (11.6-15.0)
[2017-07-17 05:12] LABS: ANION GAP 11.1 mmol/L (8-16); CALCIUM 8.5 mg/dL (8.5-10.1); CARBON DIOXIDE 30.1 mmol/L (21.0-32.0); CREATININE - SERUM 1.8 mg/dL (0.6-1.3); POTASSIUM - SERUM 3.2 mmol/L (3.5-5.1)
[2017-07-17 08:43] VITALS: BP 134/84
[2017-07-17 12:11] VITALS: BP 166/36
[2017-07-17 17:50] VITALS: BP 153/57
[2017-07-17 22:06] VITALS: BP 159/46
[2017-07-18 01:10] VITALS: BP 133/53
[2017-07-18 05:07] VITALS: BP 146/44
[2017-07-18 05:15] LABS: INR 3.11 (0.85-1.17); PROTIME 31.2 SECONDS (11.6-15.0)
[2017-07-18 05:18] LABS: ANION GAP 10.3 mmol/L (8-16); CALCIUM 8.4 mg/dL (8.5-10.1); CREATININE - SERUM 1.6 mg/dL (0.6-1.3)
[2017-07-18 05:22] LABS: POTASSIUM - SERUM 3.3 mmol/L (3.5-5.1)
[2017-07-18 05:42] LABS: BASOPHILS 0.5 % (0-2); EOSINOPHILS 6.9 % (0-7); HEMATOCRIT 23.5 % (36.0-48.0); IMMATURE GRANULOCYTES 0.1 % (0-5); LYMPHOCYTES 41.5 % (15-50); MCH 24.6 pg (26.0-34.0); MCHC 29.8 g/dL (31.0-37.0); MCV 82.5 fL (80.0-100.0); MEAN PLATELET VOLUME 10.2 fL (7.4-10.4); MONOCYTES 11.6 % (2-11); NEUTROPHILS 39.4 % (40-80); PLATELET COUNT 510 10x3/uL (130-400); RBC 2.85 10x6/uL (4.00-5.40); WBC 7.8 10x3/uL (4.8-10.8)
[2017-07-18 08:19] VITALS: BP 124/44
[2017-07-18 12:21] VITALS: BP 140/62
[2017-07-18 16:08] VITALS: BP 150/54
[2017-07-18 21:59] VITALS: BP 160/40
[2017-07-19 01:46] VITALS: BP 167/67
[2017-07-19 04:49] LABS: HEMATOCRIT 28.1 % (36.0-48.0); LYMPHOCYTES 37.8 % (15-50); MCH 24.9 pg (26.0-34.0); MCHC 30.2 g/dL (31.0-37.0); MCV 82.4 fL (80.0-100.0); MONOCYTES 11.9 % (2-11); NEUTROPHILS 41.3 % (40-80); PLATELET COUNT 505 10x3/uL (130-400); RBC 3.41 10x6/uL (4.00-5.40); RDW 19.9 % (11.5-14.5); WBC 7.2 10x3/uL (4.8-10.8)
[2017-07-19 05:10] LABS: HEMOGLOBIN 8.5 g/dL (12-16)
[2017-07-19 05:18] LABS: INR 2.07 (0.85-1.17); PROTIME 22.7 SECONDS (11.6-15.0)
[2017-07-19 05:24] VITALS: BP 154/49
[2017-07-19 05:31] LABS: ANION GAP 13.4 mmol/L (8-16); CALCIUM 8.5 mg/dL (8.5-10.1); CARBON DIOXIDE 28.2 mmol/L (21.0-32.0); CREATININE - SERUM 1.7 mg/dL (0.6-1.3); POTASSIUM - SERUM 3.6 mmol/L (3.5-5.1)
[2017-07-19 08:30] VITALS: BP 144/57
[2017-07-19 11:28] VITALS: BP 142/53
[2017-07-19 21:37] VITALS: BP 143/73
[2017-07-20 01:49] VITALS: BP 128/46
[2017-07-20 05:34] LABS: BASOPHILS 0.6 % (0-2); EOSINOPHILS 5.1 % (0-7); HEMATOCRIT 32.7 % (36.0-48.0); HEMOGLOBIN 9.7 g/dL (12-16); IMMATURE GRANULOCYTES 0.2 % (0-5); LYMPHOCYTES 37.6 % (15-50); MCH 24.6 pg (26.0-34.0); MCHC 29.7 g/dL (31.0-37.0); MCV 82.8 fL (80.0-100.0); MEAN PLATELET VOLUME 10.9 fL (7.4-10.4); MONOCYTES 11.8 % (2-11); NEUTROPHILS 44.7 % (40-80); PLATELET COUNT 604 10x3/uL (130-400); RBC 3.95 10x6/uL (4.00-5.40); RDW 19.7 % (11.5-14.5); WBC 8.8 10x3/uL (4.8-10.8)
[2017-07-20 05:36] VITALS: BP 138/55
[2017-07-20 05:53] LABS: INR 1.85 (0.85-1.17); PROTIME 20.8 SECONDS (11.6-15.0)
[2017-07-20 06:18] LABS: ANION GAP 16.6 mmol/L (8-16); CALCIUM 9.2 mg/dL (8.5-10.1); CARBON DIOXIDE 26.6 mmol/L (21.0-32.0); CREATININE - SERUM 1.7 mg/dL (0.6-1.3); POTASSIUM - SERUM 3.2 mmol/L (3.5-5.1)
[2017-07-20 08:23] VITALS: BP 157/61
[2017-07-20 12:14] VITALS: BP 169/65
[2017-07-20 17:09] VITALS: BP 131/55
[2017-07-20 21:30] VITALS: BP 135/76
[2017-07-21 06:36] VITALS: BP 141/56
[2017-07-21 09:09] VITALS: BP 178/57
[2017-07-21 12:15] VITALS: BP 161/49
[2017-07-21 12:43] LABS: BASOPHILS 0.1 % (0-2); EOSINOPHILS 2.6 % (0-7); HEMATOCRIT 32.1 % (36.0-48.0); HEMOGLOBIN 9.7 g/dL (12-16); IMMATURE GRANULOCYTES 0.2 % (0-5); LYMPHOCYTES 9.6 % (15-50); MCHC 30.2 g/dL (31.0-37.0); MCV 82.7 fL (80.0-100.0); MEAN PLATELET VOLUME 10.1 fL (7.4-10.4); MONOCYTES 4.6 % (2-11); NEUTROPHILS 82.9 % (40-80); PLATELET COUNT 532 10x3/uL (130-400); RBC 3.88 10x6/uL (4.00-5.40); RDW 19.8 % (11.5-14.5); WBC 8.4 10x3/uL (4.8-10.8)
[2017-07-21 12:46] LABS: INR 1.81 (0.85-1.17); PROTIME 20.4 SECONDS (11.6-15.0)
[2017-07-21 12:51] LABS: CALCIUM 9.1 mg/dL (8.5-10.1); CARBON DIOXIDE 27.6 mmol/L (21.0-32.0); CREATININE - SERUM 1.8 mg/dL (0.6-1.3); POTASSIUM - SERUM 3.6 mmol/L (3.5-5.1)
[2017-07-21 20:26] VITALS: BP 184/48
[2017-07-22 00:53] VITALS: BP 169/62
[2017-07-22 03:34] VITALS: BP 153/58
[2017-07-22 07:00] VITALS: BP 170/53
[2017-07-22 07:08] LABS: HEMATOCRIT 35.3 % (36.0-48.0); LYMPHOCYTES 9.8 % (15-50); MCH 25.7 pg (26.0-34.0); MCHC 31.2 g/dL (31.0-37.0); MCV 82.5 fL (80.0-100.0); MEAN PLATELET VOLUME 10.9 fL (7.4-10.4); NEUTROPHILS 88.2 % (40-80); RBC 4.28 10x6/uL (4.00-5.40); RDW 19.8 % (11.5-14.5)
[2017-07-22 07:09] LABS: PLATELET COUNT 323 10x3/uL (130-400); WBC 11.3 10x3/uL (4.8-10.8)
[2017-07-22 07:12] LABS: ANION GAP 15.7 mmol/L (8-16); CALCIUM 8.5 mg/dL (8.5-10.1); CARBON DIOXIDE 27.4 mmol/L (21.0-32.0); POTASSIUM - SERUM 4.1 mmol/L (3.5-5.1)
[2017-07-22 12:48] VITALS: BP 110/34
[2017-07-22 13:17] LABS: INR 1.96 (0.85-1.17); PROTIME 21.4 SECONDS (11.6-15.0)
[2017-07-22 16:00] VITALS: BP 96/36
[2017-07-22 21:41] VITALS: BP 118/37
[2017-07-23 01:10] VITALS: BP 154/44
[2017-07-23 04:51] LABS: BASOPHILS 0.1 % (0-2); EOSINOPHILS 12.6 % (0-7); HEMATOCRIT 30.1 % (36.0-48.0); HEMOGLOBIN 9.1 g/dL (12-16); IMMATURE GRANULOCYTES 0.4 % (0-5); MCHC 30.2 g/dL (31.0-37.0); MCV 82.7 fL (80.0-100.0); MEAN PLATELET VOLUME 10.6 fL (7.4-10.4); MONOCYTES 6.9 % (2-11); RBC 3.64 10x6/uL (4.00-5.40); RDW 20.2 % (11.5-14.5); WBC 10.5 10x3/uL (4.8-10.8)
[2017-07-23 04:58] VITALS: BP 135/39
[2017-07-23 05:03] LABS: ANION GAP 12.5 mmol/L (8-16); CALCIUM 8.3 mg/dL (8.5-10.1); CARBON DIOXIDE 27.7 mmol/L (21.0-32.0)
[2017-07-23 05:09] LABS: CREATININE - SERUM 2.7 mg/dL (0.6-1.3)
[2017-07-23 05:10] LABS: POTASSIUM - SERUM 3.2 mmol/L (3.5-5.1)
[2017-07-23 05:16] LABS: PLATELET COUNT 554 10x3/uL (130-400)
[2017-07-23 05:55] LABS: INR 2.01 (0.85-1.17); PROTIME 21.8 SECONDS (11.6-15.0)
[2017-07-23 08:14] VITALS: BP 141/36
[2017-07-23 16:13] VITALS: BP 144/47
[2017-07-23 20:00] VITALS: BP 133/43
[2017-07-24] VITALS (8 sets, daily range): BP systolic 115–167; BP diastolic 42–96
[2017-07-24 04:53] LABS: BASOPHILS 0.1 % (0-2); EOSINOPHILS 16.6 % (0-7); HEMATOCRIT 31.7 % (36.0-48.0); HEMOGLOBIN 9.3 g/dL (12-16); IMMATURE GRANULOCYTES 0.4 % (0-5); LYMPHOCYTES 13.3 % (15-50); MCH 24.4 pg (26.0-34.0); MCHC 29.3 g/dL (31.0-37.0); MCV 83.2 fL (80.0-100.0); MEAN PLATELET VOLUME 10.7 fL (7.4-10.4); MONOCYTES 9.1 % (2-11); NEUTROPHILS 60.5 % (40-80); PLATELET COUNT 561 10x3/uL (130-400); RBC 3.81 10x6/uL (4.00-5.40); WBC 9.9 10x3/uL (4.8-10.8)
[2017-07-24 05:07] LABS: ANION GAP 12.7 mmol/L (8-16); CALCIUM 8.2 mg/dL (8.5-10.1); CARBON DIOXIDE 28.6 mmol/L (21.0-32.0); CREATININE - SERUM 2.9 mg/dL (0.6-1.3); POTASSIUM - SERUM 3.3 mmol/L (3.5-5.1)
[2017-07-24 05:10] LABS: INR 2.38 (0.85-1.17); PROTIME 25.3 SECONDS (11.6-15.0)
[2017-07-25 00:30] VITALS: BP 103/52
[2017-07-25 04:30] VITALS: BP 169/51
[2017-07-25 06:17] LABS: BASOPHILS 0.1 % (0-2); EOSINOPHILS 19.6 % (0-7); HEMATOCRIT 32.2 % (36.0-48.0); HEMOGLOBIN 9.5 g/dL (12-16); IMMATURE GRANULOCYTES 0.2 % (0-5); LYMPHOCYTES 20.3 % (15-50); MCH 24.1 pg (26.0-34.0); MCHC 29.5 g/dL (31.0-37.0); MCV 81.7 fL (80.0-100.0); MEAN PLATELET VOLUME 10.3 fL (7.4-10.4); MONOCYTES 12.5 % (2-11); NEUTROPHILS 47.3 % (40-80); PLATELET COUNT 525 10x3/uL (130-400); RBC 3.94 10x6/uL (4.00-5.40); RDW 19.7 % (11.5-14.5); WBC 8.2 10x3/uL (4.8-10.8)
[2017-07-25 06:27] LABS: ANION GAP 11.4 mmol/L (8-16); CALCIUM 8.1 mg/dL (8.5-10.1); CREATININE - SERUM 2.9 mg/dL (0.6-1.3); POTASSIUM - SERUM 3.4 mmol/L (3.5-5.1)
[2017-07-25 06:32] LABS: INR 3.19 (0.85-1.17); PROTIME 31.9 SECONDS (11.6-15.0)
[2017-07-25 09:37] VITALS: BP 128/45
[2017-07-25 12:33] VITALS: BP 122/46
[2017-07-25 15:43] VITALS: BP 118/44
[2017-07-25 21:17] VITALS: BP 118/44
[2017-07-26 05:27] LABS: BASOPHILS 0.3 % (0-2); EOSINOPHILS 18.8 % (0-7); HEMATOCRIT 31.2 % (36.0-48.0); HEMOGLOBIN 9.5 g/dL (12-16); IMMATURE GRANULOCYTES 0.3 % (0-5); LYMPHOCYTES 28.9 % (15-50); MCH 24.8 pg (26.0-34.0); MCHC 30.4 g/dL (31.0-37.0); MCV 81.5 fL (80.0-100.0); MEAN PLATELET VOLUME 10.8 fL (7.4-10.4); MONOCYTES 11.4 % (2-11); NEUTROPHILS 40.3 % (40-80); PLATELET COUNT 501 10x3/uL (130-400); RBC 3.83 10x6/uL (4.00-5.40); RDW 19.9 % (11.5-14.5); WBC 9.5 10x3/uL (4.8-10.8)
[2017-07-26 05:44] LABS: INR 4.17 (0.85-1.17); PROTIME 39.4 SECONDS (11.6-15.0)
[2017-07-26 05:51] LABS: ANION GAP 14.5 mmol/L (8-16); CALCIUM 8.5 mg/dL (8.5-10.1); CARBON DIOXIDE 25.4 mmol/L (21.0-32.0); CREATININE - SERUM 3.2 mg/dL (0.6-1.3); POTASSIUM - SERUM 3.9 mmol/L (3.5-5.1)
[2017-07-26 06:06] VITALS: BP 167/74
[2017-07-26 08:02] VITALS: BP 136/46
[2017-07-26 11:45] VITALS: BP 113/41
[2017-07-26 17:11] VITALS: BP 110/39
[2017-07-26 20:00] VITALS: BP 123/39
[2017-07-27] VITALS: BP 121/55
[2017-07-27 03:52] LABS: BASOPHILS 0.5 % (0-2); EOSINOPHILS 16.6 % (0-7); HEMATOCRIT 28.9 % (36.0-48.0); HEMOGLOBIN 8.7 g/dL (12-16); IMMATURE GRANULOCYTES 0.3 % (0-5); LYMPHOCYTES 32.9 % (15-50); MCH 24.4 pg (26.0-34.0); MCHC 30.1 g/dL (31.0-37.0); MONOCYTES 11.3 % (2-11); NEUTROPHILS 38.4 % (40-80); PLATELET COUNT 458 10x3/uL (130-400); RBC 3.57 10x6/uL (4.00-5.40); RDW 19.5 % (11.5-14.5); WBC 8.6 10x3/uL (4.8-10.8)
[2017-07-27 04:00] VITALS: BP 145/43
[2017-07-27 04:03] LABS: INR 4.33 (0.85-1.17); PROTIME 40.6 SECONDS (11.6-15.0)
[2017-07-27 04:09] LABS: ANION GAP 14.7 mmol/L (8-16); CALCIUM 8.6 mg/dL (8.5-10.1); CREATININE - SERUM 3.2 mg/dL (0.6-1.3); POTASSIUM - SERUM 3.7 mmol/L (3.5-5.1)
[2017-07-27 08:49] VITALS: BP 167/59
[2017-07-27 11:33] VITALS: BP 145/50
[2017-07-27 15:35] VITALS: BP 138/54
[2017-07-27 21:10] VITALS: BP 135/44
[2017-07-28 02:43] VITALS: BP 131/63
[2017-07-28 07:21] LABS: BASOPHILS 0.5 % (0-2); EOSINOPHILS 11.7 % (0-7); HEMATOCRIT 32.7 % (36.0-48.0); HEMOGLOBIN 9.8 g/dL (12-16); IMMATURE GRANULOCYTES 0.3 % (0-5); LYMPHOCYTES 34.5 % (15-50); MCH 24.1 pg (26.0-34.0); MCV 80.3 fL (80.0-100.0); MEAN PLATELET VOLUME 10.8 fL (7.4-10.4); PLATELET COUNT 544 10x3/uL (130-400); RBC 4.07 10x6/uL (4.00-5.40); RDW 19.7 % (11.5-14.5); WBC 10.7 10x3/uL (4.8-10.8)
[2017-07-28 07:35] LABS: ANION GAP 16.6 mmol/L (8-16); CALCIUM 9.1 mg/dL (8.5-10.1); POTASSIUM - SERUM 3.6 mmol/L (3.5-5.1)
[2017-07-28 07:44] LABS: INR 3.64 (0.85-1.17); PROTIME 35.4 SECONDS (11.6-15.0)
[2017-07-28 09:21] VITALS: BP 132/48
[2017-07-28 11:53] VITALS: BP 133/36
[2017-07-28 20:00] VITALS: BP 138/51
[2017-07-29 06:59] LABS: BASOPHILS 0.8 % (0-2); EOSINOPHILS 8.1 % (0-7); HEMATOCRIT 30.9 % (36.0-48.0); HEMOGLOBIN 9.4 g/dL (12-16); IMMATURE GRANULOCYTES 0.3 % (0-5); LYMPHOCYTES 31.9 % (15-50); MCH 24.7 pg (26.0-34.0); MCHC 30.4 g/dL (31.0-37.0); MCV 81.3 fL (80.0-100.0); MEAN PLATELET VOLUME 10.3 fL (7.4-10.4); MONOCYTES 11.8 % (2-11); NEUTROPHILS 47.1 % (40-80); PLATELET COUNT 541 10x3/uL (130-400); RDW 20.2 % (11.5-14.5); WBC 9.2 10x3/uL (4.8-10.8)
[2017-07-29 07:07] LABS: INR 4.32 (0.85-1.17); PROTIME 40.5 SECONDS (11.6-15.0)
[2017-07-29 07:17] LABS: ANION GAP 14.3 mmol/L (8-16); CALCIUM 8.7 mg/dL (8.5-10.1); CARBON DIOXIDE 24.6 mmol/L (21.0-32.0); CREATININE - SERUM 2.8 mg/dL (0.6-1.3); POTASSIUM - SERUM 3.9 mmol/L (3.5-5.1)
[2017-07-29 11:25] VITALS: BP 118/60
[2017-07-29 16:25] VITALS: BP 136/67
[2017-07-29 20:00] VITALS: BP 132/32
[2017-07-30] VITALS: BP 138/42
[2017-07-30 07:00] LABS: BASOPHILS 0.6 % (0-2); EOSINOPHILS 5.1 % (0-7); HEMATOCRIT 31.7 % (36.0-48.0); HEMOGLOBIN 9.7 g/dL (12-16); IMMATURE GRANULOCYTES 0.3 % (0-5); LYMPHOCYTES 32.8 % (15-50); MCH 24.6 pg (26.0-34.0); MCHC 30.6 g/dL (31.0-37.0); MCV 80.5 fL (80.0-100.0); MEAN PLATELET VOLUME 10.6 fL (7.4-10.4); MONOCYTES 16.1 % (2-11); NEUTROPHILS 45.1 % (40-80); PLATELET COUNT 618 10x3/uL (130-400); RBC 3.94 10x6/uL (4.00-5.40); RDW 19.9 % (11.5-14.5); WBC 8.7 10x3/uL (4.8-10.8)
[2017-07-30 07:12] LABS: INR 4.25 (0.85-1.17)
[2017-07-30 07:38] LABS: CARBON DIOXIDE 24.7 mmol/L (21.0-32.0); CREATININE - SERUM 2.8 mg/dL (0.6-1.3); POTASSIUM - SERUM 3.7 mmol/L (3.5-5.1)
[2017-07-30 07:45] VITALS: BP 169/59
[2017-07-30 11:45] VITALS: BP 115/47
[2017-07-30 14:56] VITALS: BP 143/50
[2017-07-30 21:32] VITALS: BP 139/98
[2017-07-31] VITALS: BP 138/90
[2017-07-31 06:05] VITALS: BP 138/90
[2017-07-31 06:27] LABS: BASOPHILS 0.7 % (0-2); IMMATURE GRANULOCYTES 0.3 % (0-5); LYMPHOCYTES 30.1 % (15-50); MCH 24.4 pg (26.0-34.0); MCHC 30.3 g/dL (31.0-37.0); MCV 80.7 fL (80.0-100.0); MEAN PLATELET VOLUME 10.7 fL (7.4-10.4); MONOCYTES 15.8 % (2-11); NEUTROPHILS 48.1 % (40-80); PLATELET COUNT 666 10x3/uL (130-400); RBC 4.09 10x6/uL (4.00-5.40); RDW 20.2 % (11.5-14.5); WBC 9.1 10x3/uL (4.8-10.8)
[2017-07-31 06:30] LABS: INR 4.08 (0.85-1.17); PROTIME 38.8 SECONDS (11.6-15.0)
[2017-07-31 06:35] LABS: ANION GAP 17.4 mmol/L (8-16); CALCIUM 8.8 mg/dL (8.5-10.1); CARBON DIOXIDE 24.4 mmol/L (21.0-32.0); CREATININE - SERUM 2.7 mg/dL (0.6-1.3); POTASSIUM - SERUM 3.8 mmol/L (3.5-5.1)
[2017-07-31 08:36] VITALS: BP 143/39
[2017-07-31 12:34] VITALS: BP 125/36
[2017-07-31 16:12] VITALS: BP 112/37
[2017-07-31 20:00] VITALS: BP 133/43
[2017-08-01] VITALS: BP 137/31
[2017-08-01 05:58] LABS: BASOPHILS 0.7 % (0-2); EOSINOPHILS 3.3 % (0-7); HEMATOCRIT 30.9 % (36.0-48.0); HEMOGLOBIN 9.6 g/dL (12-16); IMMATURE GRANULOCYTES 0.5 % (0-5); LYMPHOCYTES 31.3 % (15-50); MCH 25.1 pg (26.0-34.0); MCHC 31.1 g/dL (31.0-37.0); MCV 80.7 fL (80.0-100.0); MEAN PLATELET VOLUME 10.7 fL (7.4-10.4); MONOCYTES 15.7 % (2-11); NEUTROPHILS 48.5 % (40-80); PLATELET COUNT 641 10x3/uL (130-400); RBC 3.83 10x6/uL (4.00-5.40); RDW 20.6 % (11.5-14.5); WBC 9.2 10x3/uL (4.8-10.8)
[2017-08-01 06:21] LABS: INR 3.89 (0.85-1.17); PROTIME 37.3 SECONDS (11.6-15.0)
[2017-08-01 06:25] LABS: ANION GAP 17.5 mmol/L (8-16); CALCIUM 8.8 mg/dL (8.5-10.1); CARBON DIOXIDE 22.3 mmol/L (21.0-32.0); CREATININE - SERUM 2.4 mg/dL (0.6-1.3); POTASSIUM - SERUM 3.8 mmol/L (3.5-5.1)
[2017-08-01 07:00] VITALS: BP 148/42
[2017-08-01 17:02] VITALS: BP 155/82
[2017-08-01 22:06] VITALS: BP 102/50
[2017-08-02 05:05] VITALS: BP 134/39
[2017-08-02 06:17] LABS: BASOPHILS 0.4 % (0-2); EOSINOPHILS 5.3 % (0-7); HEMOGLOBIN 9.8 g/dL (12-16); IMMATURE GRANULOCYTES 0.3 % (0-5); LYMPHOCYTES 30.8 % (15-50); MCH 24.9 pg (26.0-34.0); MCHC 30.6 g/dL (31.0-37.0); MCV 81.4 fL (80.0-100.0); MEAN PLATELET VOLUME 10.7 fL (7.4-10.4); MONOCYTES 14.8 % (2-11); NEUTROPHILS 48.4 % (40-80); PLATELET COUNT 656 10x3/uL (130-400); RBC 3.93 10x6/uL (4.00-5.40); RDW 21.2 % (11.5-14.5); WBC 9.5 10x3/uL (4.8-10.8)
[2017-08-02 06:32] LABS: INR 3.56 (0.85-1.17); PROTIME 34.8 SECONDS (11.6-15.0)
[2017-08-02 06:42] LABS: ANION GAP 14.8 mmol/L (8-16); CALCIUM 9.2 mg/dL (8.5-10.1); CARBON DIOXIDE 25.7 mmol/L (21.0-32.0); CREATININE - SERUM 2.1 mg/dL (0.6-1.3)
[2017-08-02 06:45] LABS: POTASSIUM - SERUM 4.5 mmol/L (3.5-5.1)
[2017-08-02 08:40] VITALS: BP 135/40
[2017-08-02 12:24] VITALS: BP 122/42
== END 2017-08-02 18:59 | DRG 299 ==
LOC: D.ER 12:28 → D.M2 20:20
PROVIDERS: Emergency Medicine; Family Medicine; Internal Medicine Gastroenterology; Internal Medicine Nephrology
PROC: 05HC33Z Insertion of Infusion Device into Left Basilic Vein, Percutaneous Approach (ICD-10-PCS; 2017-07-18)
PROC: B54NZZA Ultrasonography of Left Upper Extremity Veins, Guidance (ICD-10-PCS; 2017-07-18)
PROC: 0DB78ZX Excision of Stomach, Pylorus, Via Natural or Artificial Opening Endoscopic, Diagnostic (ICD-10-PCS; 2017-07-19)
PROC: 0DB98ZX Excision of Duodenum, Via Natural or Artificial Opening Endoscopic, Diagnostic (ICD-10-PCS; principal; 2017-07-19 13:15)
DX: I87.2 Venous insufficiency (chronic) (peripheral) (principal); I50.33 Acute on chronic diastolic (congestive) heart failure; L03.116 Cellulitis of left lower limb; I13.0 Hypertensive heart and chronic kidney disease with heart failure and stage 1 through stage 4 chronic kidney disease, or unspecified chronic kidney disease; I69.954 Hemiplegia and hemiparesis following unspecified cerebrovascular disease affecting left non-dominant side; N17.9 Acute kidney failure, unspecified; B19.10 Unspecified viral hepatitis B without hepatic coma; L03.115 Cellulitis of right lower limb; D50.9 Iron deficiency anemia, unspecified; E11.22 Type 2 diabetes mellitus with diabetic chronic kidney disease; I25.10 Atherosclerotic heart disease of native coronary artery without angina pectoris; I48.2 Chronic atrial fibrillation; Z79.01 Long term (current) use of anticoagulants; I08.3 Combined rheumatic disorders of mitral, aortic and tricuspid valves; K21.0 Gastro-esophageal reflux disease with esophagitis; K44.9 Diaphragmatic hernia without obstruction or gangrene; E78.5 Hyperlipidemia, unspecified; K59.00 Constipation, unspecified; R41.0 Disorientation, unspecified; I69.919 Unspecified symptoms and signs involving cognitive functions following unspecified cerebrovascular disease; F01.50 Vascular dementia, unspecified severity, without behavioral disturbance, psychotic disturbance, mood disturbance, and anxiety; K57.90 Diverticulosis of intestine, part unspecified, without perforation or abscess without bleeding; K52.9 Noninfective gastroenteritis and colitis, unspecified; K29.00 Acute gastritis without bleeding; K29.80 Duodenitis without bleeding; N18.3 Chronic kidney disease, stage 3 (moderate); Z85.118 Personal history of other malignant neoplasm of bronchus and lung; Z95.0 Presence of cardiac pacemaker

== ENCOUNTER 2017-08-17 09:38 | Inpatient (IN) | payer MEDICARE, OTHER ==
[~2017-08-17] VITALS: Ht 180.3 cm; Wt 122.5 kg
[2017-08-17 10:33] LABS: BASOPHILS 0.5 % (0-2); EOSINOPHILS 7.3 % (0-7); HEMATOCRIT 34.4 % (36.0-48.0); HEMOGLOBIN 10.5 g/dL (12-16); IMMATURE GRANULOCYTES 0.1 % (0-5); LYMPHOCYTES 36.8 % (15-50); MCH 26.6 pg (26.0-34.0); MCHC 30.5 g/dL (31.0-37.0); MCV 87.1 fL (80.0-100.0); MEAN PLATELET VOLUME 10.4 fL (7.4-10.4); MONOCYTES 11.8 % (2-11); NEUTROPHILS 43.5 % (40-80); RBC 3.95 10x6/uL (4.00-5.40); RDW 24.8 % (11.5-14.5); WBC 7.8 10x3/uL (4.8-10.8)
[2017-08-17 10:36] LABS: PLATELET COUNT 361 10x3/uL (130-400)
[2017-08-17 11:02] LABS: ALBUMIN 2.4 g/dL (3.4-5.0); ANION GAP 12.3 mmol/L (8-16); BILIRUBIN - TOTAL 0.42 mg/dL (0.2-1.3); CALCIUM 8.4 mg/dL (8.5-10.1); CARBON DIOXIDE 26.6 mmol/L (21.0-32.0); CREATININE - SERUM 2.1 mg/dL (0.6-1.3); POTASSIUM - SERUM 3.9 mmol/L (3.5-5.1); PROTEIN - SERUM 5.6 g/dL (6.4-8.2)
[2017-08-17 16:34] VITALS: BP 135/51; BMI 37.7
[2017-08-17 16:48] VITALS: BP 135/51
[2017-08-17] MEDS ORDERED: COUMADIN1 MG PO (17:59)
[2017-08-17] MEDS ORDERED: COUMADIN3 MG PO (18:00)
[2017-08-17] MEDS ORDERED: COZAAR25 MG PO (18:01)
[2017-08-17] MEDS ORDERED: FERROUS SULFAT325 MG PO (18:02)
[2017-08-17] MEDS ORDERED: MUCINEX600 MG PO (18:03)
[2017-08-17] MEDS ORDERED: SENNA PLUS TA1 UDTAB PO (18:09)
[2017-08-17] MEDS ORDERED: TUMS X-STR300 MG PO (18:10)
[2017-08-17] MEDS ORDERED: ZOLOFT25 MG PO (18:11)
[2017-08-17] MEDS ORDERED: ACIDOPHILUS LAC1 CAP PO (18:13)
[2017-08-17] MEDS ORDERED: AQUAPHOR HEALIN50 GM TOPICAL (18:14)
[2017-08-17] MEDS ORDERED: OMEPRAZOLE20 M1 PO (18:19)
[2017-08-17 21:35] VITALS: BP 155/53
[2017-08-18 00:45] VITALS: BP 148/62
[2017-08-18 04:54] VITALS: BP 150/60
[2017-08-18 06:32] LABS: BASOPHILS 0.5 % (0-2); EOSINOPHILS 9.5 % (0-7); HEMATOCRIT 32.7 % (36.0-48.0); IMMATURE GRANULOCYTES 0.1 % (0-5); LYMPHOCYTES 33.9 % (15-50); MCH 26.5 pg (26.0-34.0); MCHC 30.6 g/dL (31.0-37.0); MCV 86.7 fL (80.0-100.0); MEAN PLATELET VOLUME 10.4 fL (7.4-10.4); MONOCYTES 13.8 % (2-11); NEUTROPHILS 42.2 % (40-80); PLATELET COUNT 367 10x3/uL (130-400); RBC 3.77 10x6/uL (4.00-5.40); RDW 24.8 % (11.5-14.5); WBC 7.5 10x3/uL (4.8-10.8)
[2017-08-18 06:55] LABS: ALBUMIN 2.1 g/dL (3.4-5.0); ANION GAP 13.3 mmol/L (8-16); BILIRUBIN - TOTAL 0.4 mg/dL (0.2-1.3); CARBON DIOXIDE 23.3 mmol/L (21.0-32.0); CREATININE - SERUM 1.7 mg/dL (0.6-1.3); POTASSIUM - SERUM 3.6 mmol/L (3.5-5.1); PROTEIN - SERUM 5.2 g/dL (6.4-8.2)
[2017-08-18 08:10] VITALS: BP 158/44
[2017-08-18 11:31] VITALS: BP 141/48
[2017-08-18 15:29] VITALS: BP 172/46
[2017-08-18 15:53] LABS: INR 2.12 (0.85-1.17); PROTIME 23.1 SECONDS (11.6-15.0)
[2017-08-18 20:31] VITALS: BP 169/54
[2017-08-19 01:49] VITALS: BP 149/44
[2017-08-19 04:57] VITALS: BP 156/43
[2017-08-19 08:57] LABS: HEMATOCRIT 30.8 % (36.0-48.0); HEMOGLOBIN 9.4 g/dL (12-16); IMMATURE GRANULOCYTES 0.2 % (0-5); LYMPHOCYTES 31.6 % (15-50); MCH 26.6 pg (26.0-34.0); MCHC 30.5 g/dL (31.0-37.0); MEAN PLATELET VOLUME 10.2 fL (7.4-10.4); MONOCYTES 14.6 % (2-11); NEUTROPHILS 43.6 % (40-80); PLATELET COUNT 330 10x3/uL (130-400); RBC 3.54 10x6/uL (4.00-5.40); RDW 24.8 % (11.5-14.5); WBC 6.2 10x3/uL (4.8-10.8)
[2017-08-19 09:10] VITALS: BP 115/44
[2017-08-19 09:10] LABS: ANION GAP 12.1 mmol/L (8-16); CALCIUM 7.8 mg/dL (8.5-10.1); CARBON DIOXIDE 24.2 mmol/L (21.0-32.0); CREATININE - SERUM 1.6 mg/dL (0.6-1.3); POTASSIUM - SERUM 3.3 mmol/L (3.5-5.1)
[2017-08-19 11:34] VITALS: BP 95/41
[2017-08-19 22:00] VITALS: BP 147/46
[2017-08-20 01:42] VITALS: BP 152/48
[2017-08-20 04:31] LABS: BASOPHILS 0.7 % (0-2); EOSINOPHILS 7.9 % (0-7); HEMATOCRIT 33.4 % (36.0-48.0); HEMOGLOBIN 10.3 g/dL (12-16); IMMATURE GRANULOCYTES 0.1 % (0-5); LYMPHOCYTES 39.9 % (15-50); MCHC 30.8 g/dL (31.0-37.0); MCV 87.4 fL (80.0-100.0); NEUTROPHILS 37.4 % (40-80); PLATELET COUNT 349 10x3/uL (130-400); RBC 3.82 10x6/uL (4.00-5.40); WBC 7.3 10x3/uL (4.8-10.8)
[2017-08-20 04:47] LABS: PROTIME 27.2 SECONDS (11.6-15.0)
[2017-08-20 04:55] LABS: INR 2.61 (0.85-1.17)
[2017-08-20 05:03] LABS: ANION GAP 12.6 mmol/L (8-16); CALCIUM 8.1 mg/dL (8.5-10.1); CREATININE - SERUM 1.6 mg/dL (0.6-1.3); POTASSIUM - SERUM 3.6 mmol/L (3.5-5.1)
[2017-08-20 05:55] VITALS: BP 145/43
[2017-08-20 08:04] VITALS: BP 93/35
[2017-08-20 12:02] VITALS: BP 102/43
[2017-08-20 14:31] VITALS: Ht 180.3 cm; Wt 122.5 kg
[2017-08-20 15:33] VITALS: BP 110/53
[2017-08-20 21:52] VITALS: BP 124/61
[2017-08-21 00:48] VITALS: BP 113/43
[2017-08-21 05:33] VITALS: BP 100/34
[2017-08-21 05:35] LABS: CARBON DIOXIDE 22.3 mmol/L (21.0-32.0); CREATININE - SERUM 1.9 mg/dL (0.6-1.3); POTASSIUM - SERUM 3.3 mmol/L (3.5-5.1)
[2017-08-21 05:41] LABS: HEMATOCRIT 31.9 % (36.0-48.0); LYMPHOCYTES 38.9 % (15-50); MCH 27.5 pg (26.0-34.0); MCHC 31.3 g/dL (31.0-37.0); MCV 87.9 fL (80.0-100.0); MEAN PLATELET VOLUME 10.8 fL (7.4-10.4); NEUTROPHILS 41.4 % (40-80); PLATELET COUNT 333 10x3/uL (130-400); RBC 3.63 10x6/uL (4.00-5.40); RDW 24.6 % (11.5-14.5); WBC 6.8 10x3/uL (4.8-10.8)
[2017-08-21 07:54] VITALS: BP 109/41
[2017-08-21 10:40] LABS: INR 2.69 (0.85-1.17); PROTIME 27.9 SECONDS (11.6-15.0)
[2017-08-21 12:26] VITALS: BP 90/36
[2017-08-21 16:14] VITALS: BP 93/42
[2017-08-21 21:28] VITALS: BP 130/44
[2017-08-22 00:56] VITALS: BP 134/44
[2017-08-22 04:36] VITALS: BP 143/48
[2017-08-22 06:08] LABS: BASOPHILS 0.7 % (0-2); EOSINOPHILS 4.3 % (0-7); HEMATOCRIT 29.9 % (36.0-48.0); IMMATURE GRANULOCYTES 0.2 % (0-5); LYMPHOCYTES 38.8 % (15-50); MCH 26.4 pg (26.0-34.0); MCHC 30.1 g/dL (31.0-37.0); MCV 87.7 fL (80.0-100.0); MEAN PLATELET VOLUME 10.1 fL (7.4-10.4); MONOCYTES 13.3 % (2-11); NEUTROPHILS 42.7 % (40-80); PLATELET COUNT 323 10x3/uL (130-400); RBC 3.41 10x6/uL (4.00-5.40); RDW 24.8 % (11.5-14.5); WBC 5.9 10x3/uL (4.8-10.8)
[2017-08-22 06:22] LABS: INR 3.09 (0.85-1.17); PROTIME 31.1 SECONDS (11.6-15.0)
[2017-08-22 07:06] LABS: ANION GAP 16.8 mmol/L (8-16); CALCIUM 7.6 mg/dL (8.5-10.1); CARBON DIOXIDE 20.8 mmol/L (21.0-32.0); CREATININE - SERUM 2.1 mg/dL (0.6-1.3); POTASSIUM - SERUM 3.6 mmol/L (3.5-5.1); VANCOMYCIN - RANDOM 23.9 ug/mL (10.0-20.0)
[2017-08-22 08:06] VITALS: BP 178/46
[2017-08-22 12:16] VITALS: BP 164/52
[2017-08-22 15:58] VITALS: BP 112/41
[2017-08-22 20:00] VITALS: BP 127/74
[2017-08-23] VITALS: BP 127/33
[2017-08-23 04:54] VITALS: BP 99/30
[2017-08-23 06:23] LABS: BASOPHILS 0.5 % (0-2); EOSINOPHILS 5.8 % (0-7); HEMATOCRIT 29.3 % (36.0-48.0); HEMOGLOBIN 8.9 g/dL (12-16); IMMATURE GRANULOCYTES 0.2 % (0-5); LYMPHOCYTES 44.1 % (15-50); MCH 26.6 pg (26.0-34.0); MCHC 30.4 g/dL (31.0-37.0); MCV 87.7 fL (80.0-100.0); MEAN PLATELET VOLUME 10.9 fL (7.4-10.4); MONOCYTES 13.7 % (2-11); NEUTROPHILS 35.7 % (40-80); PLATELET COUNT 344 10x3/uL (130-400); RBC 3.34 10x6/uL (4.00-5.40); RDW 24.9 % (11.5-14.5); WBC 6.6 10x3/uL (4.8-10.8)
[2017-08-23 06:51] LABS: ANION GAP 15.5 mmol/L (8-16); CALCIUM 8.1 mg/dL (8.5-10.1); CARBON DIOXIDE 22.2 mmol/L (21.0-32.0); CREATININE - SERUM 2.4 mg/dL (0.6-1.3); POTASSIUM - SERUM 3.7 mmol/L (3.5-5.1); VANCOMYCIN - RANDOM 22.6 ug/mL (10.0-20.0)
[2017-08-23 07:39] LABS: INR 2.46 (0.85-1.17)
[2017-08-23 07:48] VITALS: BP 125/41
[2017-08-23 12:09] VITALS: BP 119/44
[2017-08-23 15:27] VITALS: BP 155/76
[2017-08-23 21:43] VITALS: BP 120/38
[2017-08-24 00:25] VITALS: BP 101/36
[2017-08-24 05:50] LABS: INR 3.29 (0.85-1.17); PROTIME 32.7 SECONDS (11.6-15.0)
[2017-08-24 08:14] VITALS: BP 129/39
[2017-08-24 08:19] LABS: BASOPHILS 0.8 % (0-2); EOSINOPHILS 7.4 % (0-7); HEMATOCRIT 31.2 % (36.0-48.0); HEMOGLOBIN 9.6 g/dL (12-16); IMMATURE GRANULOCYTES 0.1 % (0-5); LYMPHOCYTES 36.4 % (15-50); MCH 26.8 pg (26.0-34.0); MCHC 30.8 g/dL (31.0-37.0); MCV 87.2 fL (80.0-100.0); MEAN PLATELET VOLUME 11.7 fL (7.4-10.4); MONOCYTES 13.6 % (2-11); NEUTROPHILS 41.7 % (40-80); PLATELET COUNT 335 10x3/uL (130-400); RBC 3.58 10x6/uL (4.00-5.40); WBC 7.4 10x3/uL (4.8-10.8)
[2017-08-24 09:27] LABS: ALBUMIN 2.1 g/dL (3.4-5.0); ANION GAP 12.1 mmol/L (8-16); BILIRUBIN - TOTAL 0.34 mg/dL (0.2-1.3); CALCIUM 8.5 mg/dL (8.5-10.1); CARBON DIOXIDE 24.3 mmol/L (21.0-32.0); CREATININE - SERUM 2.4 mg/dL (0.6-1.3); MAGNESIUM - SERUM 1.7 mg/dL (1.8-2.4); PHOSPHOROUS 3.8 mg/dL (2.5-4.9); POTASSIUM - SERUM 3.4 mmol/L (3.5-5.1); PROTEIN - SERUM 4.9 g/dL (6.4-8.2)
[2017-08-24 12:10] VITALS: BP 166/32
[2017-08-24 15:49] VITALS: BP 157/37
== END 2017-08-24 16:52 | DRG 602 ==
LOC: D.ER 09:38 → D.EDHOLD 12:39 → D.MS 12:39
PROVIDERS: Emergency Medicine; Family Medicine; Internal Medicine Nephrology
PROC: 0HQLXZZ Repair Left Lower Leg Skin, External Approach (ICD-10-PCS; principal; 2017-08-17)
DX: L03.116 Cellulitis of left lower limb (principal); R53.2 Functional quadriplegia; I50.43 Acute on chronic combined systolic (congestive) and diastolic (congestive) heart failure; N17.9 Acute kidney failure, unspecified; I69.354 Hemiplegia and hemiparesis following cerebral infarction affecting left non-dominant side; L03.115 Cellulitis of right lower limb; S81.812A Laceration without foreign body, left lower leg, initial encounter; W26.8XXA Contact with other sharp object(s), not elsewhere classified, initial encounter; I48.91 Unspecified atrial fibrillation; E78.5 Hyperlipidemia, unspecified; E11.9 Type 2 diabetes mellitus without complications; K21.9 Gastro-esophageal reflux disease without esophagitis; Z85.118 Personal history of other malignant neoplasm of bronchus and lung; N28.9 Disorder of kidney and ureter, unspecified; D53.9 Nutritional anemia, unspecified; R53.1 Weakness; I65.29 Occlusion and stenosis of unspecified carotid artery; I87.2 Venous insufficiency (chronic) (peripheral); I11.0 Hypertensive heart disease with heart failure; R60.9 Edema, unspecified; I08.3 Combined rheumatic disorders of mitral, aortic and tricuspid valves

== ENCOUNTER 2017-10-02 21:45 | Observation (INO) | payer MEDICARE, OTHER ==
[~2017-10-02] VITALS: Ht 180.3 cm; Wt 122.5 kg
[~2017-10-02 21:45] MED LIST changes: +ACIDOPHILUS LAC1 CAP PO; +AQUAPHOR HEALIN50 GM TOPICAL; +COUMADIN1 MG PO; +FERROUS SULFAT325 MG PO; +OMEPRAZOLE20 M1 PO; +SENNA PLUS TA1 UDTAB PO; +TUMS X-STR300 MG PO; +ZOLOFT25 MG PO
[2017-10-03 03:17] VITALS: BP 118/43; BMI 37.7
[2017-10-03 07:52] VITALS: BP 123/45
[2017-10-03 10:38] VITALS: BMI 37.6
[2017-10-03 12:20] VITALS: BP 151/48
[2017-10-03 12:21] VITALS: Ht 180.3 cm; Wt 122.5 kg
== END 2017-10-03 16:52 | disposition home health service (06) ==
LOC: D.ER 21:45 → D.MS 10-03 01:25 → D.EDHOLD 10-03 01:25 → OBSVTIME 10-03 01:25 → D.MS 10-03 01:30 → D.EDHOLD 10-03 01:30 → D.MS 10-03 16:52
DX: K11.6 Mucocele of salivary gland (principal); E11.9 Type 2 diabetes mellitus without complications; K75.9 Inflammatory liver disease, unspecified; I10 Essential (primary) hypertension; Z95.0 Presence of cardiac pacemaker; I48.91 Unspecified atrial fibrillation; Z79.01 Long term (current) use of anticoagulants